=== PATIENT | female | born 1990 | race Asian ===

== ENCOUNTER 2018-07-24 21:46 | Emergency (ER) | payer SELFPAY ==
[~2018-07-24] VITALS: Ht 165.1 cm; Wt 113.4 kg
[2018-07-24 22:04] LABS: BILIRUBIN,URINE NEGATIVE (NEG); CLARITY,URINE CLOUDY; COLOR,URINE YELLOW; PROTEIN,URINE NEGATIVE (NEG-TRACE)
[2018-07-24 22:05] LABS: NITRITE,URINE NEGATIVE (NEG)
[2018-07-24 22:11] VITALS: BP 127/62
[2018-07-24 22:12] LABS: SQUAMOUS EPITHELIAL CELL,UR MANY /LPF
[2018-07-24 22:13] LABS: BACTERIA,URINE MODERATE /HPF (0-FEW); WBC,URINE 20-40 /HPF (0-4)
[2018-07-24 22:14] LABS: TRICHOMONAS,URINE PRESENT
[2018-07-24] MEDS ORDERED: CEPH-264 PO (23:13)
--- NOTE | 2018-07-24 23:14 | PHYS DOC ---
Past Medical History Past Medical History: No Pertinent History (NAVEED CELIS APRN) Past Surgical History: No Surgical History (NAVEED CELIS APRN) Alcohol Use: None Drug Use: None (NAVEED CELIS APRN) Adult General Chief Complaint Chief Complaint: ABDOMINAL PAIN HPI HPI Patient is a 28 year old [female] who presents with [lower abdominal pain starting at 1500 today. Patient reports she believes she is , reports s he had negative raising test at home and it had become positive. A she reports her lower abdominal pain comes and goes, denies any vaginal discharge, denies any vaginal bleeding. Denies any nausea. Denies any vomiting. Denies any diarrhea. Last bowel movement this morning. States she was only concerned about this abdominal pain, and if she was . Reports is her second , has a 9-year-old son. Last menstrual cycle May 14, 2018.] (NAVEED CELIS APRN) Review of Systems Review of Systems Constitutional: Denies fever or chills [] Eyes: Denies change in visual acuity, redness, or eye pain [] HENT: Denies nasal congestion or sore throat [] Respiratory: Denies cough or shortness of breath [] Cardiovascular: No additional information not addressed in HPI [] GI: Denies abdominal pain, nausea, vomiting, bloody stools or diarrhea [] : Reports mild dysuria denies hematuria [] Musculoskeletal: Denies back pain or joint pain [] Integument: Denies rash or skin lesions [] Neurologic: Denies headache, focal weakness or sensory changes [] Endocrine: Denies polyuria or polydipsia [] All other systems were reviewed and found to be within normal limits, except as documented in this note. (NAVEED CELIS APRN) Allergies Allergies Allergies Coded Allergies Type Severity Reaction Last Updated Verified No Known Drug Allergies 07/24/18 No (CAROL CASAS DO) Physical Exam Physical Exam Constitutional: Well developed, well nourished, no acute distress, non-toxic appearance. [] HENT: Normocephalic, atraumatic, bilateral external ears normal, oropharynx moist, no oral exudates, nose normal. [] Eyes: PERRLA, EOMI, conjunctiva normal, no discharge. [] Neck: Normal range of motion, no tenderness, supple, no stridor. [] Cardiovascular:Heart rate regular rhythm, no murmur [] Lungs & Thorax: Bilateral breath sounds clear to auscultation [] Abdomen: Bowel sounds normal, soft, no tenderness, no masses, no pulsatile masses. [] Skin: Warm, dry, no erythema, no rash. [] Back: No tenderness, no CVA tenderness. [] Extremities: No tenderness, no cyanosis, no clubbing, ROM intact, no edema. [] Neurologic: Alert and oriented X 3, normal motor function, normal sensory function, no focal deficits noted. [] Psychologic: Affect normal, judgement normal, mood normal. [] (NAVEED CELIS APRN) Current Patient Data Vital Signs Vital Signs Date Time Temp Pulse Resp B/P (MAP) Pulse Ox O2 Delivery O2 Flow Rate FiO2 07/24/18 22:11 97.7 82 20 127/62 (83) 100 Room Air 97.7 (CAROL CASAS DO) Lab Values Laboratory Tests Test 07/24/18 21:57 07/24/18 22:01 Urine Collection Type Unknown Urine Color Yellow Urine Clarity Cloudy Urine pH 6.0 Urine Specific [place] 1.020 Urine Protein Negative mg/dL (NEG-TRACE) Urine Glucose (UA) Negative mg/dL (NEG) Urine Ketones (Stick) Negative mg/dL (NEG) Urine Blood Trace (NEG) Urine Nitrite Negative (NEG) Urine Bilirubin Negative (NEG) Urine Urobilinogen Dipstick 2.0 mg/dL (0.2 mg/dL) Urine Leukocyte Esterase Large (NEG) Urine RBC 1-2 /HPF (0-2) Urine WBC 20-40 /HPF (0-4) Urine Squamous Epithelial Cells Many /LPF Urine Bacteria Moderate /HPF (0-FEW) Urine Mucus Mod /LPF Urine Trichomonas Present POC Urine HCG, Qualitative Hcg positive (Negative) Microbiology 07/24/18 Urine Culture - Final, Complete 07/24/18 Urine Culture Result 1 (GEOVANY) - Final, Complete (CAROL CASAS DO) EKG EKG [] (NAVEED CELIS APRN) Radiology/Procedures Radiology/Procedures [] (NAVEED CELIS APRN) Course & Med Decision Making Course & Med Decision Making Pertinent Labs and Imaging studies reviewed. (See chart for details) [] (NAVEED CELIS APRN) Dragon Disclaimer Dragon Disclaimer This electronic medical record was generated, in whole or in part, using a voice recognition dictation system. (NAVEED CELIS APRN) Departure Departure Impression: Primary Impression: UTI in Disposition: HOME, SELF-CARE Condition: GOOD Referrals: NO PCP (PCP) Patient Instructions: - Urinary Tract Infection, Urinary Tract Infection, [id number] Additional Instructions: As we discussed, make sure you take the antibiotic as prescribed. It is safe in You should start taking vitamins for your . Follow up with your Manager [facility] or your primary care provider for your pregna ncy. Scripts Cephalexin (KEFLEX) 500 Mg Capsule 1 CAP PO BID, #14 CAP Prov: NAVEED CELIS APRN 07/24/18 Attending Signature Attending Signature I have reviewed the PA/EMERGENCY ROOM PHYSICIAN's note and plan of care. I was available for consultation as needed during the patient's visit in the emergency department. I agree with the clinical impression, plan, and disposition. (CAROL CASAS DO) Problem Qualifiers Primary Impression: UTI in Trimester: first trimester Qualified Codes: O23.41 - Unspecified infection of urinary tract in , first trimester NAVEED CELIS APRN July 24, 2018 23:14 CAROL CASAS DO Jul 29, 2018 06:48
== END 2018-07-24 23:36 | disposition home or self-care (01) ==
LOC: ER 21:46
DX: O23.41 Unspecified infection of urinary tract in pregnancy, first trimester (principal); R10.30 Lower abdominal pain, unspecified; Z3A.00 Weeks of gestation of pregnancy not specified
CPT/HCPCS: 81001; 81025; 87086; 99284

== ENCOUNTER 2019-04-29 19:44 | Emergency (ER) | payer SELFPAY ==
[~2019-04-29] VITALS: Ht 170.2 cm; Wt 68.1 kg
[~2019-04-29 19:44] MED LIST: CEPH-264 PO; IBUP-1027 PO
[2019-04-29 20:20] VITALS: BP 113/71
--- NOTE | 2019-04-29 20:20 | PHYS DOC ---
Past Medical History Past Medical History: No Pertinent History (STELLA WALKER APRN) Past Surgical History: No Surgical History (STELLA WALKER APRN) Smoking Status: Never Smoker Alcohol Use: None Drug Use: None (STELLA WALKER APRN) Adult General Chief Complaint Chief Complaint: TEST [facility] HPI Patient is a 29 year old female 2 para 2 presenting to the ED today complaining of nausea and vomiting that began 2 days ago and possible . Patient reports her last menstrual cycle was the beginning of February 2019. Patient denies any abdominal pain. Denies any urgency, frequency or dysuria. (STELLA WALKER APRN) Review of Systems Review of Systems Constitutional: Denies fever or chills [] Eyes: Denies change in visual acuity, redness, or eye pain [] HENT: Denies nasal congestion or sore throat [] Respiratory: Denies cough or shortness of breath [] Cardiovascular: No additional information not addressed in HPI [] GI: Reports nausea and vomiting and possible . Denies abdominal pain,bloody stools or diarrhea [] : Denies dysuria or hematuria [] Musculoskeletal: Denies back pain or joint pain [] Integument: Denies rash or skin lesions [] Neurologic: Denies headache, focal weakness or sensory changes [] All other systems were reviewed and found to be within normal limits, except as documented in this note. (STELLA WALKER APRN) Allergies Allergies Allergies Coded Allergies Type Severity Reaction Last Updated Verified No Known Drug Allergies 07/24/18 No (YAO WISDOM APRN) Physical Exam Physical Exam Constitutional: Well developed, well nourished, no acute distress, non-toxic appearance. [] HENT: Normocephalic, atraumatic, bilateral external ears normal, oropharynx moist, no oral exudates, nose normal. [] Eyes: PERRLA, EOMI, conjunctiva normal, no discharge. [] Neck: Normal range of motion, no tenderness, supple, no stridor. [] Cardiovascular:Heart rate regular rhythm, no murmur [] Lungs & Thorax: Bilateral breath sounds clear to auscultation [] Abdomen: Bowel sounds normal, soft, no tenderness, no masses, no pulsatile masses. [] Skin: Warm, dry, no erythema, no rash. [] Back: No tenderness, no CVA tenderness. [] Extremities: No tenderness, no cyanosis, no clubbing, ROM intact, no edema. [] Neurologic: Alert and oriented X 3, normal motor function, normal sensory function, no focal deficits noted. [] Psychologic: Affect normal, judgement normal, mood normal. [] (STELLA WALKER APRN) Current Patient Data Vital Signs Vital Signs Date Time Temp Pulse Resp B/P (MAP) Pulse Ox O2 Delivery O2 Flow Rate FiO2 04/29/19 20:20 97.9 85 14 113/71 (85) 100 Room Air 97.9 (YAO WISDOM APRN) Lab Values Laboratory Tests Test 04/29/19 21:18 POC Urine HCG, Qualitative Hcg positive (Negative) (YAO WISDOM APRN) EKG EKG [] (STELLA WALKER APRN) Radiology/Procedures Radiology/Procedures [] (STELLA WALKER APRN) Radiology/Procedures Comparisons: None FINDINGS: Uterus measures 10.5 x 8.0 x 6.9 cm within the endometrium there is a gestational sac with pole. pole measures 1.5 cm in length. This corresponds to 7 weeks 6 days gestation. heart rate measured at 171 bpm. Right ovary measures 2.0 x 2.5 x 1.6 cm. Left ovary measures 3.1 x 3.2 x 2.3 cm. Vascular flow is identified within the ovaries bilaterally. IMPRESSION: 1. Single live intrauterine gestation measuring 7 weeks 6 days. Correlate with LMP 2. Dedicated survey is recommended at 18-20 weeks gestation. Electronically signed by: Vance Ortiz MD (04/29/2019 9:29 PM) [id number] DICTATED and SIGNED BY: VANCE ORTIZ MD DATE: 04/29/192128 (YAO WISDOM APRN) Course & Med Decision Making Course & Med Decision Making Pertinent Labs and Imaging studies reviewed. (See chart for details) This is a 29-year-old female patient presenting to the ED today with nausea and vomiting that began 2 days ago as well as possible . Last menstrual cycle the beginning of February 2019 Positive urine hCG. Pending OB ultrasound to confirm IUP and UA. Care tx to [facility] (STELLA WALKER APRN) Course & Med Decision Making Reviewed urinalysis showing UTI, reviewed ultrasound results showing intrauterine dated 7 weeks 6 days. Will provide Rx for antibiotics for UTI, vitamins. Patient to follow up with OBGYN (YAO WISDOM APRN) Tavo Disclaimer Tavo Disclaimer This electronic medical record was generated, in whole or in part, using a voice recognition dictation system. (STELLA WALKER APRN) Departure Departure Impression: Primary Impression: Additional Impression: Urinary tract infection affecting care of mother in first trimester, antepartum Disposition: HOME, SELF-CARE Condition: STABLE Referrals: NO PCP (PCP) CAROL VALERO MD follow up in 1-2 weeks Patient Instructions: ABCs of Additional Instructions: Your test is positive. Please take vitamins daily Please follow up with your OBGYN or the provided OBGYN in the next 1-2 weeks Scripts Nitrofurantoin Monohyd/M-Cryst (MACROBID 100 MG CAPSULE) 100 Mg Capsule 1 CAP PO BID for 5 Days, #10 CAP 0 Refills Prov: YAO WISDOM APRN 04/29/19 Pnv95/Ferrous Fumarate/FA ( Vitamin Tablet) 1 Each Tablet 1 TAB PO DAILY for 30 Days, #30 TAB 0 Refills Prov: YAO WISDOM APRN 04/29/19 Problem Qualifiers Primary Impression: Weeks of gestation: unspecified Qualified Codes: Z34.90 - Encounter for supervision of normal , unspecified, unspecified trimester STELLA WALKER APRN Apr 29, 2019 20:20 YAO WISDOM APRN Apr 29, 2019 21:45
[2019-04-29 21:24] LABS: BILIRUBIN,URINE NEGATIVE (NEG); CLARITY,URINE CLEAR; COLOR,URINE YELLOW; NITRITE,URINE NEGATIVE (NEG); PROTEIN,URINE NEGATIVE (NEG-TRACE)
--- NOTE | 2019-04-29 21:32 | RAD ---
Exam: Ultrasound OB less than 14 weeks Indication: Pain and Technique: Real-time grayscale and color Doppler images of the pelvis were obtained by the department surgical oncologist. Comparisons: None FINDINGS: Uterus measures 10.5 x 8.0 x 6.9 cm within the endometrium there is a gestational sac with pole. pole measures 1.5 cm in length. This corresponds to 7 weeks 6 days gestation. heart rate measured at 171 bpm. Right ovary measures 2.0 x 2.5 x 1.6 cm. Left ovary measures 3.1 x 3.2 x 2.3 cm. Vascular flow is identified within the ovaries bilaterally. IMPRESSION: 1. Single live intrauterine gestation measuring 7 weeks 6 days. Correlate with LMP 2. Dedicated survey is recommended at 18-20 weeks gestation. Electronically signed by: Vance Ponce MD (04/29/2019 9:29 PM) [id number]
[2019-04-29 21:37] LABS: BACTERIA,URINE MODERATE /HPF (0-FEW); RBC,URINE RARE /HPF (0-2); SQUAMOUS EPITHELIAL CELL,UR MOD /LPF
[2019-04-29] MEDS ORDERED: PNV91TAB6 PO (21:44)
[2019-04-29] MEDS ORDERED: NITR100C62 PO (21:44)
== END 2019-04-29 22:00 | disposition home or self-care (01) ==
LOC: ER 19:44 → EDBD 19:44 → ER 22:00
DX: O23.41 Unspecified infection of urinary tract in pregnancy, first trimester (principal); O21.9 Vomiting of pregnancy, unspecified; Z3A.01 Less than 8 weeks gestation of pregnancy
CPT/HCPCS: 76801; 81001; 81025; 87086; 99284

== ENCOUNTER 2019-05-04 19:23 | Emergency (ER) | payer SELFPAY ==
[~2019-05-04] VITALS: Ht 170.2 cm; Wt 68.0 kg
[~2019-05-04 19:23] MED LIST changes: +NITR100C62 PO; +PNV91TAB6 PO
[2019-05-04 20:00] VITALS: BP 125/68
[2019-05-04 20:52] LABS: BILIRUBIN,URINE NEGATIVE (NEG); CLARITY,URINE CLEAR; COLOR,URINE YELLOW; NITRITE,URINE NEGATIVE (NEG); PH,URINE 6.5 (<5.0-8.0); PROTEIN,URINE NEGATIVE (NEG-TRACE)
[2019-05-04 20:58] LABS: BACTERIA,URINE FEW /HPF (0-FEW); RBC,URINE OCC /HPF (0-2); SQUAMOUS EPITHELIAL CELL,UR MANY /LPF
--- NOTE | 2019-05-04 21:07 | PHYS DOC ---
Past Medical History Past Medical History: No Pertinent History Past Surgical History: No Surgical History Smoking Status: Never Smoker Alcohol Use: None Drug Use: None Adult General Chief Complaint Chief Complaint: ABDOMINAL PAIN IN HPI HPI Patient is a 29 year old female who presents to the emergency department with complaints of right flank pain and right-sided upper abdominal pain that began yesterday. Patient also reports increased urinary frequency, dysuria, and urgency. She denies any nausea, vomiting, diarrhea, abnormal vaginal discharge, vaginal bleeding, incontinence, fever, cough, or shortness of breath. She currently rates her pain a 9 out of 10 on the pain scale, she denies any alleviating factors, the pain is worse with urination. Patient states that her last menstrual cycle was on February 252019, this is her second , and she has 1 child at home. Review of Systems Review of Systems Complete ROS is negative unless otherwise noted in HPI. Allergies Allergies Allergies Coded Allergies Type Severity Reaction Last Updated Verified No Known Drug Allergies 07/24/18 No Physical Exam Physical Exam See Above Constitutional: Well developed, well nourished, no acute distress, non-toxic appearance, obese. [] HENT: Normocephalic, atraumatic, bilateral external ears normal, nose normal. [] Eyes: PERRLA, EOMI, conjunctiva normal, no discharge. [] Neck: Normal range of motion, no stridor. [] Cardiovascular:Heart rate regular rhythm, no murmur [] Lungs & Thorax: Bilateral breath sounds clear to auscultation, Respirations even and unlabored, no retractions, no respiratory distress [] Abdomen: Bowel sounds normal, soft, no rebound tenderness, no guarding, no masses, no pulsatile masses. [] Skin: Warm, dry, no erythema, no rash. [] Back: R CVA tenderness. [] Extremities: No cyanosis, ROM intact, no edema. [] Neurologic: Alert and oriented X 3, no focal deficits noted. [] Psychologic: Affect normal, judgement normal, mood normal. [] Current Patient Data Vital Signs Vital Signs Date Time Temp Pulse Resp B/P (MAP) Pulse Ox O2 Delivery O2 Flow Rate FiO2 05/04/19 20:00 98.2 81 16 125/68 (87) 98 Room Air 98.2 Lab Values Laboratory Tests Test 05/04/19 20:45 Urine Collection Type Unknown Urine Color Yellow Urine Clarity Clear Urine pH 6.5 (<5.0-8.0) Urine Specific [employer] 1.010 (1.000-1.030) Urine Protein Negative mg/dL (NEG-TRACE) Urine Glucose (UA) Negative mg/dL (NEG) Urine Ketones (Stick) Negative mg/dL (NEG) Urine Blood Negative (NEG) Urine Nitrite Negative (NEG) Urine Bilirubin Negative (NEG) Urine Urobilinogen Dipstick 1.0 mg/dL (0.2 mg/dL) Urine Leukocyte Esterase Moderate (NEG) Urine RBC Occ /HPF (0-2) Urine WBC 5-10 /HPF (0-4) Urine Squamous Epithelial Cells Many /LPF Urine Bacteria Few /HPF (0-FEW) Urine Mucus Slight /LPF POC Urine HCG, Qualitative Hcg positive (Negative) EKG EKG [] Radiology/Procedures Radiology/Procedures [] Course & Med Decision Making Course & Med Decision Making Pertinent Labs and Imaging studies reviewed. (See chart for details) Patient is a 29-year-old female who presented to the emergency room with complaints of right flank pain, dysuria, increased urinary frequency, and urgency. Will order urine test and UA. Urinalysis is concerning for a urinary tract infection. Prescription was written for Keflex, patient instructed to increase clear fluids and avoid bladder irritants. Recommend follow-up with [facility]. Return to the ER symptoms worsen. Patient was provided with a work excuse as requested. Patient verbalized an understanding of home care, medications, follow-up, and return to ED instructions and was in agreement with the plan of care. [] Dragon Disclaimer Dragon Disclaimer This electronic medical record was generated, in whole or in part, using a voice recognition dictation system. Departure Departure Impression: Primary Impression: Urinary tract infection affecting care of mother in first trimester, antepartum Disposition: HOME, SELF-CARE Condition: STABLE Referrals: NO PCP (PCP) Patient Instructions: - Urinary Tract Infection Additional Instructions: Fill prescription(s) and use as directed. Avoid bladder irritants such as caffeine, carbonation, and spicy foods. Increase clear fluids. Follow up with your primary care doctor if symptoms persist, return to the ER if symptoms worsen. Scripts Cephalexin (KEFLEX) 500 Mg Capsule 500 MG PO BID for 7 Days, #14 CAP 0 Refills Prov: PATSY MÉNDEZ APRN 05/04/19 PATSY MÉNDEZ APRN May 04, 2019 21:07
[2019-05-04] MEDS ORDERED: CEPH-264 PO (21:09)
== END 2019-05-04 21:20 | disposition home or self-care (01) ==
LOC: ER 19:23
DX: O23.41 Unspecified infection of urinary tract in pregnancy, first trimester (principal); Z3A.00 Weeks of gestation of pregnancy not specified
CPT/HCPCS: 81001; 81025; 87086; 99283

== ENCOUNTER 2019-08-25 16:38 | Observation (INO) | payer SELFPAY ==
[2019-08-25] MEDS ORDERED: IV RINGERS,LACTATED 1000ML 1,000 ML IV SCH (16:39)
[2019-08-25 17:24] LABS: BILIRUBIN,URINE NEGATIVE (NEG); CLARITY,URINE CLEAR; COLOR,URINE YELLOW; NITRITE,URINE NEGATIVE (NEG); PROTEIN,URINE NEGATIVE (NEG-TRACE)
[2019-08-25 17:32] LABS: BACTERIA,URINE MODERATE /HPF (0-FEW); SQUAMOUS EPITHELIAL CELL,UR FEW /LPF
[2019-08-25] MEDS ORDERED: hydrOXYzine 25 MG TABLET PO PRN (18:00)
== END 2019-08-25 18:40 | disposition home or self-care (01) ==
LOC: 3 SO LND 16:38
PROVIDERS: ADMIT Obstetrics & Gynecology; ATTEND Obstetrics & Gynecology
DX: O26.892 Other specified pregnancy related conditions, second trimester (principal); R10.9 Unspecified abdominal pain; Z3A.25 25 weeks gestation of pregnancy
CPT/HCPCS: 81001; 87086; G0378; G0379

== ENCOUNTER 2019-09-18 01:10 | Observation (INO) | payer SELFPAY ==
[2019-09-18] MEDS ORDERED: IV RINGERS,LACTATED 1000ML 1,000 ML IV SCH (01:15)
[2019-09-18 01:38] LABS: BILIRUBIN,URINE NEGATIVE (NEG); CLARITY,URINE CLEAR; COLOR,URINE YELLOW; NITRITE,URINE NEGATIVE (NEG); PH,URINE 7.5 (<5.0-8.0); PROTEIN,URINE NEGATIVE (NEG-TRACE)
[2019-09-18 01:43] LABS: RBC,URINE RARE /HPF (0-2); SQUAMOUS EPITHELIAL CELL,UR MOD /LPF
[2019-09-18 01:44] LABS: BACTERIA,URINE MODERATE /HPF (0-FEW)
[2019-09-18 01:45] LABS: BARBITURATES NEG (NEG); BENZODIAZEPINES NEG (NEG); CANNABINOIDS NEG (NEG); COCAINE NEG (NEG); METHADONE NEG (NEG); OPIATES NEG (NEG); PHENCYCLIDINE NEG (NEG)
[2019-09-18 01:47] LABS: AMPHETAMINE/METHAMPHETAMINE NEG (NEG)
== END 2019-09-18 02:25 | disposition home or self-care (01) ==
LOC: 3 SO LND 01:10
PROVIDERS: ADMIT Obstetrics & Gynecology; ATTEND Obstetrics & Gynecology
DX: O26.893 Other specified pregnancy related conditions, third trimester (principal); R10.9 Unspecified abdominal pain; Z3A.28 28 weeks gestation of pregnancy
CPT/HCPCS: 80307; 81001; 87086; G0378; G0379

== ENCOUNTER 2019-10-06 17:28 | Observation (INO) | payer SELFPAY ==
[2019-10-06] MEDS ORDERED: IV RINGERS,LACTATED 1000ML 1,000 ML IV SCH (17:49)
[2019-10-06 18:09] LABS: BILIRUBIN,URINE NEGATIVE (NEG); CLARITY,URINE CLEAR; COLOR,URINE YELLOW; NITRITE,URINE NEGATIVE (NEG); PH,URINE 6.5 (<5.0-8.0); PROTEIN,URINE NEGATIVE (NEG-TRACE); UROBILINOGEN,URINE 0.2 mg/dL (0.2 mg/dL)
[2019-10-06 18:18] LABS: RBC,URINE 0 /HPF (0-2)
[2019-10-06 18:19] LABS: BACTERIA,URINE FEW /HPF (0-FEW); SQUAMOUS EPITHELIAL CELL,UR MOD /LPF; WBC,URINE 20-40 /HPF (0-4)
== END 2019-10-06 19:15 | disposition home or self-care (01) ==
LOC: 3 SO LND 17:28
PROVIDERS: ADMIT Obstetrics & Gynecology; ATTEND Obstetrics & Gynecology
DX: O26.853 Spotting complicating pregnancy, third trimester (principal); M79.652 Pain in left thigh; M79.651 Pain in right thigh; Z3A.30 30 weeks gestation of pregnancy
CPT/HCPCS: 81001; 87086; G0378; G0379

== ENCOUNTER 2019-11-30 00:10 | Inpatient (IN) | payer SELFPAY ==
[~2019-11-30] VITALS: Ht 165.1 cm; Wt 136.1 kg
[2019-11-30] MEDS ORDERED: ACETAMINOPHEN 325 MG TABLET. PO PRN ×2 (00:30→01:45)
[2019-11-30] MEDS ORDERED: 0.9 % SODIUM CHLORIDE 10 ML DISP.SYRIN. IV PRN ×2 (00:30→01:45)
[2019-11-30] MEDS ORDERED: IBUPROFEN 400 MG TABLET. PO PRN (00:30)
[2019-11-30] MEDS ORDERED: fentaNYL PF VIAL 100 MCG/2 ML VIAL IVP PRN (00:30)
[2019-11-30] MEDS ORDERED: OXYTOCIN 30 UNIT/500 ML PREMIX 500 ML IV PRN ×2 (00:30→01:45)
[2019-11-30] MEDS ORDERED: CITRIC ACID/SODIUM CITRATE 30 ML SOLUTION. PO PRN (00:30)
[2019-11-30] MEDS ORDERED: PENICILLIN G K 5,000,000 UNIT in IV DEXTROSE 5% 100ML 100 ML IV ONE (00:30)
[2019-11-30] MEDS ORDERED: LIDOCAINE 1% PF 30 ML VIAL. INJ PRN (00:30)
[2019-11-30] MEDS ORDERED: TERBUTALINE 1 MG/ML VIAL. SQ PRN (00:30)
[2019-11-30 00:44] LABS: BASO % 1 % (0-3); EOS # 0.1 x10^3/uL (0.0-0.7); EOS % 2 % (0-3); HEMATOCRIT 36.2 % (36.0-47.0); HEMOGLOBIN 12.1 g/dL (12.0-15.5); LYMPH # 1.9 x10^3/uL (1.0-4.8); LYMPH % 22 % (24-48); MEAN CORPUSCULAR HEMOGLOBIN 27 pg (25-35); MEAN CORPUSCULAR HGB CONC 33 g/dL (31-37); MEAN CORPUSCULAR VOLUME 81 fL (79-100); MONO # 0.8 x10^3/uL (0.0-1.1); MONO % 9 % (0-9); NEUT # 5.7 x10^3/uL (1.8-7.7); NEUT % 67 % (31-73); PLATELET COUNT 209 x10^3/uL (140-400); RED BLOOD COUNT 4.48 x10^6/uL (3.50-5.40); RED CELL DISTRIBUTION WIDTH 14.2 % (11.5-14.5); WHITE BLOOD COUNT 8.5 x10^3/uL (4.0-11.0)
[2019-11-30] MEDS: OXYTOCIN 30 UNIT/500 ML PREMIX 500 ML IV PRN ×2 (01:14→01:37)
[2019-11-30] MEDS: IV RINGERS,LACTATED 1000ML 1,000 ML IV SCH ×2 (01:15→06:29)
--- NOTE | 2019-11-30 01:33 | PDOC1 ---
OB - History Hx of Present Care: Good Care Ultrasounds: Normal mid trimester US Obstetrical Complications: None Medical Complications: None Past Family/Social History * Past Medical, Surgical, Family and Obstetric Histories reviewed from chart. Blood Type: Unknown Rubella: Unknown RPR/VDRL: Unknown GBS Status: Unknown HBsAG: Unknown OB - Chief Complaint & HPI Date of Admission: Date of Admission: Nov 30, 2019 at 00:10 Chief Complaint/History : 3 Para: 1 EGA: 38 Reason for admission: active labor, rupture of membranes Admission Nurse Assessment Rev: Yes OB - Admission Exam Physical Exam Vitals: VS - Last 72 Hours, by Label Date Time Temp Pulse Resp B/P (MAP) Pulse Ox O2 Delivery O2 Flow Rate FiO2 11/30/19 01:17 15 Room Air HEENT: Normal Heart: Regular Rate Lungs: Clear Abdomen: Gravid, Non tender, Soft Extremities: Edema Reflexes: Normal Cervical Dilatation: 9cm Effacement: 100% Station: +1 Membranes: Ruptured Amniotic Fluid: Clear Heart Rate: Normal Accelerations: Accelerations Present Contractions on Admission: < 5 Minutes Apart Intensity: Moderate Text A: 38 wks IUP SROM Active labor GBS unknown P: Admit active labor. Start Pen G prophylaxis. BETTY PEDROZA Jr, MD Nov 30, 2019 01:33
--- NOTE | 2019-11-30 01:34 | PDOC ---
VAGINAL DELIVERY DATE DATE: 11/30/19 TIME: 01:33 : 3 Para: 2 EGA: 38 VAGINAL DELIVERY: VTX VACCUM ASSISTED: No PLACENTA: Spontaneous 8/9 SEX: Female WEIGHT Weight [ pending ] Nuchal Cord: No Amniotic Fluid: Clear PAIN: Natural EPISIOTOMY: No EXTENSION: Yes (Left periurethral, Right vaginal sidewall and Right labial) REPAIRED WITH 3-0 chromic EBL 500 ml COMPLICATIONS none CONDITION pt. stable Signs of Intrauterine Infectio: None Shoulder Dystocia: No BETTY PEDROZA Jr, MD Nov 30, 2019 01:34
[2019-11-30] MEDS ORDERED: TDaP (Adacel) per PROTOCOL. MC PRN (01:45)
[2019-11-30] MEDS ORDERED: SIMETHICONE 80 MG TAB.CHEW PO PRN (01:45)
[2019-11-30] MEDS ORDERED: HYDROCORTISONE 1% TOPICAL OINTMENT 30GM TUBE. TP PRN (01:45)
[2019-11-30] MEDS ORDERED: MMR per PROTOCOL. MC PRN (01:45)
[2019-11-30] MEDS ORDERED: oxyCODONE/APAP 5/325 1 TAB TABLET PO PRN (01:45)
[2019-11-30] MEDS ORDERED: MAGNESIUM HYDROXIDE 2,400 MG/30 ML ORAL.SUSP. PO PRN (01:45)
[2019-11-30] MEDS ORDERED: ZOLPIDEM 5 MG TABLET. PO PRN (01:45)
[2019-11-30] MEDS ORDERED: BENZOCAINE 20% TOPICAL AEROSOL SPRAY 57GM CAN. TP PRN (01:45)
[2019-11-30] MEDS ORDERED: diphenhydrAMINE HCL 25 MG CAPSULE PO PRN (01:45)
[2019-11-30] MEDS ORDERED: MAG HYDROX/ALUMINUM HYD/SIMETH 30 ML ORAL.SUSP PO PRN (01:45)
[2019-11-30] MEDS ORDERED: PHENYLEPH/MINERAL OIL/PETROLAT RECTAL OINTMENT TUBE. RC PRN (01:45)
[2019-11-30 02:38] VITALS: BP 127/66
[2019-11-30 04:19] VITALS: BP 126/54
[2019-11-30] MEDS ORDERED: PENICILLIN G K 2,500,000 UNIT in IV DEXTROSE 5% 50 ML IV SCH (04:30)
[2019-11-30] MEDS: DOCUSATE SODIUM 100 MG CAPSULE. PO PRN (08:41)
[2019-11-30] MEDS: MULTIVITAMIN with MINERAL TABLET. PO SCH (08:42)
[2019-11-30 09:00] VITALS: BP 111/65
[2019-11-30 15:01] VITALS: BP 115/82
[2019-11-30 18:16] VITALS: BP 109/67
[2019-11-30] MEDS: IBUPROFEN 400 MG TABLET. PO PRN (20:54)
[2019-11-30 22:42] VITALS: BP 104/63
[2019-12-01 02:44] VITALS: BP 94/53
[2019-12-01] MEDS: IBUPROFEN 400 MG TABLET. PO PRN ×2 (05:53→22:00)
[2019-12-01 06:30] VITALS: BP 96/54
[2019-12-01] MEDS: FERROUS SULFATE 325 MG TABLET. PO SCH ×3 (08:00→09:01)
[2019-12-01 08:31] LABS: BASO % 0 % (0-3); EOS # 0.2 x10^3/uL (0.0-0.7); EOS % 2 % (0-3); HEMATOCRIT 28.2 % (36.0-47.0); HEMOGLOBIN 9.4 g/dL (12.0-15.5); LYMPH # 2.8 x10^3/uL (1.0-4.8); LYMPH % 26 % (24-48); MEAN CORPUSCULAR HEMOGLOBIN 27 pg (25-35); MEAN CORPUSCULAR HGB CONC 34 g/dL (31-37); MEAN CORPUSCULAR VOLUME 81 fL (79-100); MONO # 0.8 x10^3/uL (0.0-1.1); MONO % 8 % (0-9); NEUT # 6.8 x10^3/uL (1.8-7.7); NEUT % 64 % (31-73); PLATELET COUNT 177 x10^3/uL (140-400); RED CELL DISTRIBUTION WIDTH 14.2 % (11.5-14.5); WHITE BLOOD COUNT 10.7 x10^3/uL (4.0-11.0)
[2019-12-01] MEDS: DOCUSATE SODIUM 100 MG CAPSULE. PO PRN (09:01)
[2019-12-01] MEDS: MULTIVITAMIN with MINERAL TABLET. PO SCH (09:01)
[2019-12-01 11:17] VITALS: BP 109/76
--- NOTE | 2019-12-01 11:29 | NUR ---
SS received referral regarding "mother scored 18 on [place] depression scale." Referral to PAT team made for further assessment and recommendations and resources. Mother's RN notified. Amadeo from PAT team coming to meet with pt. SS will continue to follow as needed.
--- NOTE | 2019-12-01 16:56 | PDOC ---
OB Progress Note Date of Service 12/01/19 Time of Evaluation 1655 Notes Pt. feeling well. Pain controlled. No complaints. Lab Laboratory Tests Test 11/30/19 00:30 11/30/19 00:35 12/01/19 08:10 White Blood Count 8.5 x10^3/uL (4.0-11.0) 10.7 x10^3/uL (4.0-11.0) Red Blood Count 4.48 x10^6/uL (3.50-5.40) 3.50 x10^6/uL (3.50-5.40) Hemoglobin 12.1 g/dL (12.0-15.5) 9.4 g/dL (12.0-15.5) Hematocrit 36.2 % (36.0-47.0) 28.2 % (36.0-47.0) Mean Corpuscular Volume 81 fL (79-100) 81 fL (79-100) Mean Corpuscular Hemoglobin 27 pg (25-35) 27 pg (25-35) Mean Corpuscular Hemoglobin Concent 33 g/dL (31-37) 34 g/dL (31-37) Red Cell Distribution Width 14.2 % (11.5-14.5) 14.2 % (11.5-14.5) Platelet Count 209 x10^3/uL (140-400) 177 x10^3/uL (140-400) Neutrophils (%) (Auto) 67 % (31-73) 64 % (31-73) Lymphocytes (%) (Auto) 22 % (24-48) 26 % (24-48) Monocytes (%) (Auto) 9 % (0-9) 8 % (0-9) Eosinophils (%) (Auto) 2 % (0-3) 2 % (0-3) Basophils (%) (Auto) 1 % (0-3) 0 % (0-3) Neutrophils # (Auto) 5.7 x10^3/uL (1.8-7.7) 6.8 x10^3/uL (1.8-7.7) Lymphocytes # (Auto) 1.9 x10^3/uL (1.0-4.8) 2.8 x10^3/uL (1.0-4.8) Monocytes # (Auto) 0.8 x10^3/uL (0.0-1.1) 0.8 x10^3/uL (0.0-1.1) Eosinophils # (Auto) 0.1 x10^3/uL (0.0-0.7) 0.2 x10^3/uL (0.0-0.7) Basophils # (Auto) 0.0 x10^3/uL (0.0-0.2) 0.0 x10^3/uL (0.0-0.2) Treponema pallidum Antibody Nonreactive (Nonreactive) Coronavirus (PCR) Not detected (Not Detected) SARS-CoV-2 Antigen (Rapid) Negative (NEGATIVE) Laboratory Tests Test 12/01/19 08:10 White Blood Count 10.7 x10^3/uL (4.0-11.0) Red Blood Count 3.50 x10^6/uL (3.50-5.40) Hemoglobin 9.4 g/dL (12.0-15.5) Hematocrit 28.2 % (36.0-47.0) Mean Corpuscular Volume 81 fL (79-100) Mean Corpuscular Hemoglobin 27 pg (25-35) Mean Corpuscular Hemoglobin Concent 34 g/dL (31-37) Red Cell Distribution Width 14.2 % (11.5-14.5) Platelet Count 177 x10^3/uL (140-400) Neutrophils (%) (Auto) 64 % (31-73) Lymphocytes (%) (Auto) 26 % (24-48) Monocytes (%) (Auto) 8 % (0-9) Eosinophils (%) (Auto) 2 % (0-3) Basophils (%) (Auto) 0 % (0-3) Neutrophils # (Auto) 6.8 x10^3/uL (1.8-7.7) Lymphocytes # (Auto) 2.8 x10^3/uL (1.0-4.8) Monocytes # (Auto) 0.8 x10^3/uL (0.0-1.1) Eosinophils # (Auto) 0.2 x10^3/uL (0.0-0.7) Basophils # (Auto) 0.0 x10^3/uL (0.0-0.2) Medications Current Medications Sodium Chloride (Normal Saline Flush) 3 ml QSHIFT PRN IV AFTER MEDS AND BLOOD DRAWS; Start 11/30/19 at 00:30 Ringer's Solution 1,000 ml @ 125 mls/hr Q8H IV Last administered on 11/30/19at 01:15; Start 11/30/19 at 00:30 Fentanyl Citrate (Fentanyl 2ml Vial) 100 mcg PRN Q30MIN PRN IVP Severe pain Last administered on 11/30/19at 01:17; Start 11/30/19 at 00:30 Acetaminophen (Tylenol) 1,000 mg PRN Q6HRS PRN PO MILD PAIN / TEMP > 100.3'F; Start 11/30/19 at 00:30; Stop 11/30/19 at 10:16; Status DC Citric Acid/ Sodium Citrate (Bicitra) 30 ml 1X PRN PRN PO DYSPEPSIA; Start 11/30/19 at 00:30; Stop 12/01/19 at 00:29; Status DC Terbutaline Sulfate (Brethine) 0.25 mg 1X PRN PRN SQ SEE COMMENTS; Start 11/30/19 at 00:30; Stop 12/01/19 at 00:29; Status DC Lidocaine HCl (Xylocaine 1% Pf 30ml Vial) 30 ml 1X PRN PRN INJ SEE COMMENTS Last administered on 11/30/19at 01:16; Start 11/30/19 at 00:30; Stop 12/02/19 at 00:29 Oxytocin/Sodium Chloride 500 ml @ 0 mls/hr CONT PRN IV SEE I/O RECORD; Start 11/30/19 at 00:30 Oxytocin/Sodium Chloride 500 ml @ 0 mls/hr CONT PRN PRN IV Post delivery bleeding Last administered on 11/30/19at 01:37; Start 11/30/19 at 00:30 Ibuprofen (Motrin) 800 mg PRN Q6HRS PRN PO PAIN Last administered on 11/30/19at 03:57; Start 11/30/19 at 00:30; Stop 11/30/19 at 10:17; Status DC Penicillin G Potassium 1285537 unit/Dextrose 100 ml @ 100 mls/hr 1X ONCE IV ; Start 11/30/19 at 00:30; Stop 11/30/19 at 01:29; Status DC Penicillin G Potassium [id number] unit/Dextrose 50 ml @ 100 mls/hr Q4H IV ; Start 11/30/19 at 04:30; Stop 11/30/19 at 01:40; Status DC Sodium Chloride (Normal Saline Flush) 10 ml QSHIFT PRN IV AFTER MEDS AND BLOOD DRAWS; Start 11/30/19 at 01:45 Oxytocin/Sodium Chloride 500 ml @ 62.5 mls/hr CONT PRN IV SEE I/O RECORD; Start 11/30/19 at 01:45; Stop 11/30/19 at 09:44; Status DC Acetaminophen (Tylenol) 650 mg PRN Q6HRS PRN PO MILD PAIN / TEMP > 100.3'F Last administered on 12/01/19at 09:00; Start 11/30/19 at 01:45 Ibuprofen (Motrin) 800 mg PRN Q8HRS PRN PO INFLAMMATION/PAIN PREVENTION Last administered on 12/01/19at 05:53; Start 11/30/19 at 01:45 Docusate Sodium (Colace) 100 mg PRN BID PRN PO HARD STOOL Last administered on 12/01/19at 09:01; Start 11/30/19 at 01:45 Magnesium Hydroxide (Milk Of Magnesia) 2,400 mg PRN DAILY PRN PO CONSTIPATION Last administered on 12/01/19at 09:01; Start 11/30/19 at 01:45 Al Hydroxide/Mg Hydroxide (Mylanta Plus Xs) 30 ml PRN Q4HRS PRN PO HEARTBURN / GAS; Start 11/30/19 at 01:45 Simethicone (Gas-X) 80 mg PRN AFTMEALHC PRN PO GAS / BLOATING; Start 11/30/19 at 01:45 Diphenhydramine HCl (Benadryl) 25 mg PRN Q6HRS PRN PO ITCHING; Start 11/30/19 at 01:45 Benzocaine (Americaine) 1 spray PRN QID PRN TP TOPICAL PAIN; Start 11/30/19 at 01:45 Phenyleph/Shark Oil/Min Oil/Petrol (Preparation H) 1 sasha PRN QID PRN RC RECTAL PAIN; Start 11/30/19 at 01:45 Hydrocortisone (Cortaid) 1 sasha PRN QID PRN TP PERINEAL PAIN; Start 10/5/20 at 01:45 Ferrous Sulfate (Feosol) 325 mg BIDWMEALS PO Last administered on 12/01/19at 09:01; Start 12/01/19 at 08:00 Zolpidem Tartrate (Ambien) 5 mg PRN QHS PRN PO INSOMNIA, MAY REPEAT X1; Start 11/30/19 at 01:45 Info (Do NOT chart on this placeholder) 1 ea 1X PRN PRN MC SEE COMMENTS; Start 11/30/19 at 01:45 Info (Do NOT chart on this placeholder) 1 ea 1X PRN PRN MC SEE COMMENTS; Start 11/30/19 at 01:45 Oxycodone/ Acetaminophen (Percocet 5/325) 2 tab PRN Q4HRS PRN PO MODERATE PAIN, SEVERE PAIN; Start 11/30/19 at 01:45 Multivitamins (Thera M Plus) 1 tab DAILY PO Last administered on 12/01/19at 09:01; Start 11/30/19 at 09:00 Active Scripts Active Keflex (Cephalexin) 500 Mg Capsule 500 Mg PO BID 7 Days Macrobid 100 Mg Capsule (Nitrofurantoin Monohyd/M-Cryst) 100 Mg Capsule 1 Cap PO BID 5 Days Vitamin Tablet (Pnv95/Ferrous Fumarate/FA) 1 Each Tablet 1 Tab PO DAILY 30 Days Ibuprofen 400 Mg Tablet 800 Mg PO PRN Q8HRS PRN Keflex (Cephalexin) 500 Mg Capsule 1 Cap PO BID Exam Abd: soft, non tender, fundus firm Assessment PPD#1 s/p Plan of Care: Continue current Tx, Mgmt BETTY PEDROZA Jr, MD Dec 01, 2019 16:56
[2019-12-01 18:22] VITALS: BP 115/78
[2019-12-01 22:43] VITALS: BP 106/69
[2019-12-02 05:26] VITALS: BP 90/57
--- NOTE | 2019-12-02 06:23 | PDOC3 ---
OB DISCHARGE SUMMARY DATE OF ADMISSION: 11/30/19 DATE OF DISCHARGE: 12/02/19 REASON FOR ADMISSION: Onset of labor INTRAPARTUM PROCEDURES: Spontanous Vag Deliv DISCHARGE DIAGNOSIS: Term Delivered DISCHARGE INFORMATION: Activity (ad william), Diet (regular), Instructions (pelvic rest x 6 wks) HOSPITAL COURSE Term gestation delivered without complications. BETTY PEDROZA Jr, MD Dec 02, 2019 06:23
[2019-12-02] MEDS ORDERED: IBUP-1027 PO (06:34)
--- NOTE | 2019-12-02 06:35 | DISCH ---
DISCHARGE INSTRUCTIONS Condition on Discharge Condition on Discharge: Stable Activity After Discharge Activity Instructions for Disc: Activity as tolerated Lifting Instructions after Dis: No heavy lifting, No pulling or pushing, Do not lift >10 pounds Driving Instructions after Dis: Do not drive today Weight Bearing Status after Di: As tolerated Diet after Discharge Diet after Discharge: Regular Diet Texture: Regular Contacting the DRDion after DC Call your doctor for: Concerns you may have Follow-Up Follow up with: Kike in 6 wks Treatment/Equipment after DC Adaptive Equipment Issued: None BETTY PEDROZA Jr, MD Dec 02, 2019 06:35
[2019-12-02] MEDS: IBUPROFEN 400 MG TABLET. PO PRN (08:18)
[2019-12-02] MEDS: FERROUS SULFATE 325 MG TABLET. PO SCH (08:18)
[2019-12-02] MEDS: MULTIVITAMIN with MINERAL TABLET. PO SCH (08:18)
[2019-12-02 08:36] VITALS: BP 120/71
--- NOTE | 2019-12-02 12:03 | NUR ---
Discharge Discharge instructions given to patient at this time. No questions at this time. Patient states she does not have money to get a car seat, multiple options suggested to patient but she states she can't get one. Message let for, Social Service, Ailyn left at this time. Will monitor.
[2019-12-02 16:48] VITALS: BP 107/76
[2019-12-02 18:35] VITALS: BP 107/76
== END 2019-12-02 18:50 | disposition home or self-care (01) | DRG 807 ==
LOC: OBSVTOIN 00:10 → 3 SO LND 00:10 → 3 NORTH 04:19
PROVIDERS: ADMIT Obstetrics & Gynecology; ATTEND Obstetrics & Gynecology
PROC: 10E0XZZ Delivery of Products of Conception, External Approach (ICD-10-PCS; principal; 2019-11-30)
PROC: 0U7C7ZZ Dilation of Cervix, Via Natural or Artificial Opening (ICD-10-PCS; 2019-11-30)
DX: O80 Encounter for full-term uncomplicated delivery (principal); Z37.0 Single live birth; Z3A.38 38 weeks gestation of pregnancy; Z20.828 Contact with and (suspected) exposure to other viral communicable diseases
CPT/HCPCS: 36415; 85025; 86592; 86850; 86900; 86901; 87426; J2590; J3010; J3490; J7120; G0378; U0003-CS

== ENCOUNTER 2020-03-23 15:20 | Observation (INO) | payer SELFPAY ==
[~2020-03-23] VITALS: Ht 177.8 cm; Wt 113.6 kg
[2020-03-23 16:00] LABS: BILIRUBIN,URINE NEGATIVE (NEG); CLARITY,URINE CLEAR; COLOR,URINE YELLOW; NITRITE,URINE NEGATIVE (NEG); PH,URINE 6.5 (<5.0-8.0); PROTEIN,URINE NEGATIVE (NEG-TRACE)
[2020-03-23] MEDS ORDERED: IV NORMAL SALINE 1000ML BAG 1,000 ML IV ONE (16:00)
[2020-03-23 16:07] LABS: BACTERIA,URINE FEW /HPF (0-FEW)
[2020-03-23 16:08] LABS: RBC,URINE RARE /HPF (0-2); WBC,URINE OCC /HPF (0-4)
--- NOTE | 2020-03-23 16:12 | PHYS DOC ---
Past Medical History Past Medical History: No Pertinent History Past Surgical History: No Surgical History Smoking Status: Never Smoker Alcohol Use: None Drug Use: None General Adult EDM: Chief Complaint: HEADACHE HPI: HPI: This is a pleasant 30-year-old female presenting to the emergency department today with a headache. Her headache is in the front and she also has pain along the musculature of the neck. She reports having fevers and chills. This all started yesterday. Here she is not having a fever her temperature was 97.3 on arrival. She describes the headache as 10 out of 10. She reports that is worse than labor. She has not taken any medication for the pain. She is not taken Tylenol she has not taken ibuprofen. She denies any facial drooping slurred speech or any new rashes. She denies confusion. She reports she was lifting heavy boxes at [email or web address] recently. She denies any major medical conditions. She denies any numbness or weakness of the arms or legs. She denies any neck stiffness or nuchal rigidity. The headache was not sudden in onset. It took more than 2 hours to come to maximal intensity. Review of systems negative for chest pain shortness of breath abdominal pain vomiting diaphoresis fevers chills nuchal rigidity. All other review of systems negative. ED course: 30-year-old female presenting with a severe headache. On arrival her vital signs are unremarkable. On examination she has a supple neck with normal range of motion. Negative Kernig sign. Negative sign. Normal neurologic exam. She is well-appearing and otherwise has a normal physical exam. She does not appear to be in severe pain. Given her pain level, head CT ordered along with blood work. IV established. Covid test and influenza testing sent. Influenza negative. CT head shows calcification cannot exclude h emorrhage. I spoke with Dr. Luna our neurosurgeon and Dr. Patterson our neurologist. Recommendation is for CT angiogram tonight. We will also draw blood work. We will need to admit the patient for repeat head CT or MRI tomorrow morning. CT angiogram not back prior to the end of my shift at 6 PM. Plan is to follow-up on imaging and blood work. We will then admit the patient to the hospital for repeat imaging tomorrow morning. Patient had a normal neurologic exam at 6 PM prior to my finishing my shift. She was in stable condition her headache had improved. my last evaluation of the patient was about 540p. Heart Score: Risk Factors: Risk Factors: DM, Current or recent (<one month) smoker, HTN, HLP, family history of CAD, obesity. Risk Scores: Score 0 - 3: 2.5% MACE over next 6 weeks - Discharge Home Score 4 - 6: 20.3% MACE over next 6 weeks - Admit for Clinical Observation Score 7 - 10: 72.7% MACE over next 6 weeks - Early Invasive Strategies Current Medications: Current Medications Medications (Trade) Dose Ordered Sig/Ariadna Start Time Stop Time Status Last Admin Dose Admin Sodium Chloride 1,000 ml @ 1,000 mls/hr 1X ONCE 03/23/20 16:00 03/23/20 16:59 Allergies: Allergies: Allergies Coded Allergies Type Severity Reaction Last Updated Verified No Known Drug Allergies 07/24/18 No Physical Exam: PE: Constitutional: Well developed, well nourished, no acute distress, non-toxic appearance. [] HENT: Normocephalic, atraumatic, bilateral external ears normal, oropharynx moist, no oral exudates, nose normal. [] Eyes: PERRLA, EOMI, conjunctiva normal, no discharge. [] Neck: Normal range of motion, no tenderness, supple, no stridor. No nuchal rigidity. Negative Babinski sign. Negative Kernig sign. Cardiovascular:Heart rate regular rhythm, no murmur [] Lungs & Thorax: Bilateral breath sounds clear to auscultation [] Abdomen: Bowel sounds normal, soft, no tenderness, no masses, no pulsatile mas ses. [] Skin: Warm, dry, no erythema, no rash. [] Back: No tenderness, no CVA tenderness. [] Extremities: No tenderness, no cyanosis, no clubbing, ROM intact, no edema. No petechiae. No rash. Neurologic: Mental status: Awake oriented and alert x3 Cranial nerves: Extraocular movements intact, eyebrows padmini bilaterally, smile symmetric, uvula elevation nl, shoulder shrug intact bilaterally, tongue protrusion normal Clear speech. Normal [id number]. Sensation: equal and normal in all extremities Strength: 5/5 in upper and lower extremities bilaterally Psychologic: Affect normal, judgement normal, mood normal. [] Current Patient Data: Labs: Laboratory Tests Test 03/23/20 15:44 POC Urine HCG, Qualitative Hcg negative (Negative) Vital Signs: Vital Signs Date Time Temp Pulse Resp B/P (MAP) Pulse Ox O2 Delivery O2 Flow Rate FiO2 03/23/20 15:49 97.3 84 18 119/74 (89) 100 Room Air 97.3 EKG: EKG: [] Radiology/Procedures: Radiology/Procedures: [] Course & Med Decision Making: Course & Med Decision Making Pertinent Labs and Imaging studies reviewed. (See chart for details) [] Dragon Disclaimer: Dragon Disclaimer: This electronic medical record was generated, in whole or in part, using a voice recognition dictation system. Departure Departure Impression: Primary Impression: Headache Additional Impression: Severe headache Referrals: NO PCP (PCP) PAPO ZARAGOZA MD Mar 23, 2020 16:12
--- NOTE | 2020-03-23 16:32 | RAD ---
CT head without contrast: Reason for examination: Headache. Axial images were obtained through the brain. No contrast was administered. Exposure: One or more of the following individualized dose reduction techniques were utilized for thi s examination: 1. Automated exposure control 2. Adjustment of the mA and/or kV according to patient size 3. Use of iterative reconstruction technique. Ventricular systems are symmetric and not abnormally dilated. No midline shift is seen. There is a sm all hyperdensity within the right basal ganglia near the genu of the internal capsule measuring 4 mm in size. This has a Hounsfield unit value of 75. This likely represents basal ganglia calcification h owever a small focus of hemorrhage cannot be excluded. This may be further characterized by MRI. No o ther focal lesions are seen in the brain. No abnormalities are seen at the orbits. The paranasal sinu ses and mastoid air cells are clear. No acute skull abnormality is seen. IMPRESSION: 4 mm hyperdensity in the right basal ganglia near the genu of the internal capsule. This may represen t basal ganglia calcification however small hemorrhage cannot be excluded based on Hounsfield unit me asurement. Further evaluation with MRI may be helpful. Electronically signed by: Kristi Armas MD (03/23/2020 4:29 PM) [id number]
[2020-03-23 16:42] LABS: INFLUENZA A PATIENT NEGATIVE (NEGATIVE); INFLUENZA B PATIENT NEGATIVE (NEGATIVE)
[2020-03-23] MEDS ORDERED: IOHEXOL 350 MG/ML 100 ML VIAL. IV ONE (17:30)
[2020-03-23] MEDS ORDERED: CONTRAST GIVEN. MC PRN (17:30)
[2020-03-23 18:12] LABS: BASO % 0 % (0-3); EOS # 1.7 x10^3/uL (0.0-0.7); EOS % 21 % (0-3); HEMATOCRIT 33.8 % (36.0-47.0); HEMOGLOBIN 10.7 g/dL (12.0-15.5); LYMPH # 2.7 x10^3/uL (1.0-4.8); LYMPH % 34 % (24-48); MEAN CORPUSCULAR HEMOGLOBIN 25 pg (25-35); MEAN CORPUSCULAR HGB CONC 32 g/dL (31-37); MEAN CORPUSCULAR VOLUME 79 fL (79-100); MONO # 0.7 x10^3/uL (0.0-1.1); MONO % 8 % (0-9); NEUT # 2.9 x10^3/uL (1.8-7.7); NEUT % 36 % (31-73); PLATELET COUNT 189 x10^3/uL (140-400); RED BLOOD COUNT 4.27 x10^6/uL (3.50-5.40); RED CELL DISTRIBUTION WIDTH 15.8 % (11.5-14.5); WHITE BLOOD COUNT 8.1 x10^3/uL (4.0-11.0)
--- NOTE | 2020-03-23 18:16 | RAD ---
CLINICAL HISTORY: Reason: HEADACHE / Spl. Instructions: [id number] 75ML / History: COMPARISON: None available. TECHNIQUE: CT angiogram of the head and neck was performed following the administration of IV contras t. Multiplanar reconstructed images were obtained including 3D reconstructed images performed on an [facility] work station. Stenosis if present in the carotid arteries were measured using NASCET crite oscar. PQRS compliance statement - One or more of the following individualized dose reduction techniques wer e utilized for this study: 1. Automated exposure control 2. Adjustment of the mA and/or kV according to patient size 3. Use of iterative reconstruction technique FINDINGS: CTA of the intracranial circulation reveals normal appearing distal internal carotid arteries includi ng the distal cervical, petrous, cavernous and supraclinoid portions. The anterior cerebral arteries are well visualized and without evidence of stenosis or occlusion. The middle cerebral arteries are well visualized and without evidence of stenosis or occlusion. The posterior cerebral arteries are well visualized and without evidence of stenosis or occlusion. The vertebral basilar system is normal with no evidence of stenosis or occlusion. In the neck, the origins of the great vessels are unremarkable. The common carotid arteries, bilaterally are normal with no evidence of significant stenosis or occlu aisha. The internal carotid arteries are normal bilaterally with no evidence of stenosis. The vertebral arteries in the neck are well visualized bilaterally and unremarkable. 2.1 cm right thyroid nodule is seen containing coarse central calcifications resulting in mild deform ity and mass effect on the trachea.. Further evaluation with thyroid ultrasound is recommended. Mild deformity of the right lamina papyracea likely old orbital blowout fracture. IMPRESSION: 1. No evidence for high-grade stenosis or occlusion of the carotid or vertebral arteries or intracra nial cerebral arteries. 2. Right thyroid nodule, for which ultrasound evaluation is recommended. Electronically signed by: Leo Foster MD (03/23/2020 6:13 PM) SHEREEN
[2020-03-23 18:26] LABS: CALCIUM 7.9 mg/dL (8.5-10.1); CREATININE 0.8 mg/dL (0.6-1.0); GFR 84.8; POTASSIUM 3.7 mmol/L (3.5-5.1)
--- NOTE | 2020-03-23 18:26 | HP ---
ADMIT DATE: 03/23/2020 CHIEF COMPLAINT: Headache. HISTORY OF PRESENT ILLNESS: The patient is a pleasant 30-year-old female who presents to the ER with headache. She had some associated musculoskeletal pain that has been rated at 10/10. While in the ER, we did a CAT scan, which is showing a small 4 mm area of attenuation, we are concerned it could be a bleed. I have discussed the case with the ER physician. We are going to admit the patient and consult Neurology and Neurosurgery. PAST MEDICAL HISTORY: Benign. ALLERGIES: None. FAMILY HISTORY: Diabetes. SOCIAL HISTORY: She does not drink, smoke or take drugs. MEDICATIONS: Reviewed, please refer to the MRAD. REVIEW OF SYSTEMS: GENERAL: No history of weight change, weakness or fevers. SKIN: No bruising, hair changes or rashes. EYES: No blurred, double or loss of vision. NOSE AND THROAT: No history of nosebleeds, hoarseness or sore throat. HEART: No history of palpitations, chest pain or shortness of breath on exertion. LUNGS: Denies cough, hemoptysis, wheezing or shortness of breath. GASTROINTESTINAL: Denies changes in appetite, nausea, vomiting, diarrhea or constipation. GENITOURINARY: No history of frequency, urgency, hesitancy or nocturia. NEUROLOGIC: She complains of headache. PSYCHIATRIC: No history of panic, anxiety or depression. ENDOCRINE: No history of heat or cold intolerance, polyuria or polydipsia. EXTREMITIES: Denies muscle weakness, joint pain, pain on walking or stiffness. PHYSICAL EXAMINATION: VITALS: Within normal limits and are stable. GENERAL: No apparent distress. Alert and oriented. HEENT: Normal cephalic atraumatic, external auditory canals are patent EYES: Extraocular muscles are intact, pupils are equally round and reactive to light and accommodation MUSCULOSKELETAL: Well developed, well nourished, good range of motion ENDOCRINE: No thyromegaly was palpated LYMPHATICS: No cervical chain or axillary nodes were noted HEMATOPOIETIC: No bruising NECK: Supple, no JVD, no thyromegaly was noted. LUNGS: Clear to auscultation in all lung campos without rhonchi or wheezing. HEART: RRR, S1, S2 present. Peripheral pulses intact, no obvious murmurs were noted. ABDOMEN: Soft, nontender. Positive bowel sounds no organomegaly, normal bowel sounds. EXTREMITIES: Without any cyanosis, clubbing, or edema. Pedal pulses intact, Homans sign is negative. NEUROLOGIC: Normal speech, normal tone. A & O x3, moves all extremities, no obvious focal deficits. PSYCHIATRIC: Normal affect, normal mood. Stable. SKIN: No ulcerations or rashes, good skin turgor, no jaundice. VASCULAR: Good capillary refill, neurovascular bundle appears to be intact. LABORATORY DATA: White count is 8. CT of the head shows a 4 mm hyperattenuation which could be a possible bleed versus calcium deposition. ASSESSMENT AND PLAN: Headache with abnormal CT concerning for central nervous system hemorrhage. The patient will be admitted. We will consult Neurosurgery. Consult Neurology. Home medications, deep vein thrombosis prophylaxis, cardiac monitoring, neuro checks. PROGNOSIS: Guarded. LARISSA TOVAR DO DR: DEISY/bari JOB#: [id number] / [id number]
[2020-03-23 18:30] LABS: ALBUMIN/GLOBULIN RATIO 0.8 (1.0-1.7); TOTAL BILIRUBIN 0.3 mg/dL (0.2-1.0); TOTAL PROTEIN 6.9 g/dL (6.4-8.2)
[2020-03-23 19:19] LABS: % EOS 16 % (0-5); % LYMPHS 42 % (24-48); % MONOS 6 % (0-10); % SEGS 36 % (35-66); PLT ESTIMATE ADEQUATE (ADEQUATE)
[2020-03-23] MEDS ORDERED: ONDANSETRON PF 4 MG/2 ML VIAL. IV PRN (21:00)
[2020-03-23] MEDS ORDERED: MORPHINE SULFATE 4 MG/ML VIAL. IV PRN (21:00)
[2020-03-23 22:25] VITALS: BP 105/66
[2020-03-24 02:43] VITALS: BP 110/60
[2020-03-24 07:00] VITALS: BP 108/62
[2020-03-24 11:00] VITALS: BP 100/63
--- NOTE | 2020-03-24 12:19 | PDOC ---
PROGRESS NOTES Date of Service: DATE: 03/24/20 TIME: 12:19 Chief Complaint Chief Complaint =========HOSPITAL D/C SUMMARY======== DATE OF ADMIT 03-23-20 DATE OF D/C 03-24-[address] HEAD, MRI HEAD CONSULTS DR REYNOLDS, NEUROLOGY COMPLICATIONS NONE F/U PCP 2-7 DAYS ASSESSMENT AND PLAN: Headache with abnormal CT concerning for central nervous system hemorrhage. COVID 19 POS, Asymptomatic morbid obesity admitted. consult Neurosurgery. cancelled Consult Neurology. Home medications, deep vein thrombosis prophylaxis, cardiac monitoring, neuro checks. PROGNOSIS: good . 03-24 seen by luke Benitez for d/c today per RN D/C PLANNING 26 MIN History of Present Illness History of Present Illness CHIEF COMPLAINT: Headache. HISTORY OF PRESENT ILLNESS: The patient is a pleasant 30-year-old female who presents to the ER with headache. She had some associated musculoskeletal pain that has been rated at 10/10. While in the ER, we did a CAT scan, which is showing a small 4 mm area of attenuation, we are concerned it could be a bleed. I have discussed the case with the ER physician. We are going to admit the patient and consult Neurology and Neurosurgery. PAST MEDICAL HISTORY: Benign. ALLERGIES: None. FAMILY HISTORY: Diabetes. SOCIAL HISTORY: She does not drink, smoke or take drugs. MEDICATIONS: Reviewed, please refer to the MRAD. REVIEW OF SYSTEMS: GENERAL: No history of weight change, weakness or fevers. SKIN: No bruising, hair changes or rashes. EYES: No blurred, double or loss of vision. NOSE AND THROAT: No history of nosebleeds, hoarseness or sore throat. HEART: No history of palpitations, chest pain or shortness of breath on exertion. LUNGS: Denies cough, hemoptysis, wheezing or shortness of breath. GASTROINTESTINAL: Denies changes in appetite, nausea, vomiting, diarrhea or constipation. GENITOURINARY: No history of frequency, urgency, hesitancy or nocturia. NEUROLOGIC: She complains of headache. PSYCHIATRIC: No history of panic, anxiety or depression. ENDOCRINE: No history of heat or cold intolerance, polyuria or polydipsia. EXTREMITIES: Denies muscle weakness, joint pain, pain on walking or stiffness. Vitals Vitals Vital Signs Date Time Temp Pulse Resp B/P (MAP) Pulse Ox O2 Delivery O2 Flow Rate FiO2 03/24/20 11:00 97.4 69 18 100/63 (75) 100 Room Air 97.4 Physical Exam Physical Exam GENERAL: No apparent distress. Alert and oriented. HEENT: Normal cephalic atraumatic, external auditory canals are patent EYES: Extraocular muscles are intact, pupils are equally round and reactive to light and accommodation MUSCULOSKELETAL: Well developed, well nourished, good range of motion ENDOCRINE: No thyromegaly was palpated LYMPHATICS: No cervical chain or axillary nodes were noted HEMATOPOIETIC: No bruising NECK: Supple, no JVD, no thyromegaly was noted. LUNGS: Clear to auscultation in all lung campos without rhonchi or wheezing. HEART: RRR, S1, S2 present. Peripheral pulses intact, no obvious murmurs were noted. ABDOMEN: Soft, nontender. Positive bowel sounds no organomegaly, normal bowel sounds. EXTREMITIES: Without any cyanosis, clubbing, or edema. Pedal pulses intact, Homans sign is negative. NEUROLOGIC: Normal speech, normal tone. A & O x3, moves all extremities, no obvious focal deficits. PSYCHIATRIC: Normal affect, normal mood. Stable. SKIN: No ulcerations or rashes, good skin turgor, no jaundice. VASCULAR: Good capillary refill, neurovascular bundle appears to be intact. LABORATORY DATA: White count is 8. CT of the head shows a 4 mm hyperattenuation which could be a possible bleed versus calcium deposition. General: Alert, Oriented X3, Cooperative, No acute distress Heart: Regular rate Lungs: Clear Abdomen: Normal bowel sounds, Soft, No tenderness Extremities: No clubbing, No cyanosis Skin: No significant lesion Labs LABS Signed PATIENT: JESSIKA MCGRAW ACCOUNT: [id number] : 1990 LOCATION: [address] [place] [address] AGE: 30 SEX: F EXAM STATUS: ADM IN ORD. PHYSICIAN: PAPO ZARAGOZA MD REASON: HEADACHE EVAL HYPERDENSITY , A.M. PER DR ZARAGOZA PROCEDURE: BRAIN W/O CONTRAST MRI BRAIN WO History:Reason: HEADACHE EVAL HYPERDENSITY Technique: Multiplanar, multi sequential MR imaging was performed of the brain without contrast. Comparison: CT March 23, 2020 Findings: No acute infarct. No mass effect. No hydrocephalus. Gradient hypointensities within the bilateral basal ganglia related to calcifications, right greater than left. This corresponds with previously seen CT hyperdensity. No acute intracranial hemorrhage. Imaged orbits are unremarkable. Imaged paranasal sinuses and mastoid air cells are clear. Chronic right mediolateral wall defect. Impression: 1. No acute intracranial abnormality. 2. Bilateral basal ganglia calcifications, right greater than left, corresponding with CT hyperdensity. Electronically signed by: Johan Sims DO (03/24/2020 1:22 PM) [id number] DICTATED and SIGNED BY: JOHAN SIMS DO DATE: 03/24/20 [id number] PATIENT: JESSIKA MCGRAW ACCOUNT: [id number] : 1990 LOCATION: ER AGE: 30 SEX: F EXAM STATUS: REG ER ORD. PHYSICIAN: PAPO ZARAGOZA MD REASON: HEADACHE PROCEDURE: CT ANGIOGRAPHY HEAD AND NECK CLINICAL HISTORY: Reason: HEADACHE / Spl. Instructions: [id number] / History: COMPARISON: None available. TECHNIQUE: CT angiogram of the head and neck was performed following the administration of IV contrast. Multiplanar reconstructed images were obtained including 3D reconstructed images performed on an independent work station. Stenosis if present in the carotid arteries were measured using NASCET criteria. PQRS compliance statement - One or more of the following individualized dose reduction techniques were utilized for this study: 1. Automated exposure control 2. Adjustment of the mA and/or kV according to patient size 3. Use of iterative reconstruction technique FINDINGS: CTA of the intracranial circulation reveals normal appearing distal internal carotid arteries including the distal cervical, petrous, cavernous and supraclinoid portions. The anterior cerebral arteries are well visualized and without evidence of stenosis or occlusion. The middle cerebral arteries are well visualized and without evidence of stenosis or occlusion. The posterior cerebral arteries are well visualized and without evidence of stenosis or occlusion. The vertebral basilar system is normal with no evidence of stenosis or occlusion. In the neck, the origins of the great vessels are unremarkable. The common carotid arteries, bilaterally are normal with no evidence of significant stenosis or occlusion. The internal carotid arteries are normal bilaterally with no evidence of stenosis. The vertebral arteries in the neck are well visualized bilaterally and unremarkable. 2.1 cm right thyroid nodule is seen containing coarse central calcifications r esulting in mild deformity and mass effect on the trachea.. Further evaluation with thyroid ultrasound is recommended. Mild deformity of the right lamina papyracea likely old orbital blowout fracture. IMPRESSION: 1. No evidence for high-grade stenosis or occlusion of the carotid or vertebral arteries or intracranial cerebral arteries. 2. Right thyroid nodule, for which ultrasound evaluation is recommended. Electronically signed by: Leo Lowe MD (03/23/2020 6:13 PM) [facility] DICTATED and SIGNED BY: LEO LOWE MD DATE: 03/23/[id number] head without contrast: Reason for examination: Headache. Axial images were obtained through the brain. No contrast was administered. Exposure: One or more of the following individualized dose reduction techniques were utilized for this examination: 1. Automated exposure control 2. A djustment of the mA and/or kV according to patient size 3. Use of iterative reconstruction technique. Ventricular systems are symmetric and not abnormally dilated. No midline shift is seen. There is a small hyperdensity within the right basal ganglia near the genu of the internal capsule measuring 4 mm in size. This has a Hounsfield unit value of 75. This likely represents basal ganglia calcification however a small focus of hemorrhage cannot be excluded. This may be further characterized by MRI. No other focal lesions are seen in the brain. No abnormalities are seen at the orbits. The paranasal sinuses and mastoid air cells are clear. No acute skull abnormality is seen. IMPRESSION: 4 mm hyperdensity in the right basal ganglia near the genu of the internal capsule. This may represent basal ganglia calcification however small hemorrhage cannot be excluded based on Hounsfield unit measurement. Further evaluation with MRI may be helpful. Electronically signed by: Ollie Adame MD (03/23/2020 4:29 PM) [id number] DICTATED and SIGNED BY: OLLIE ADAME MD DATE: 03/23/20 [id number] Laboratory Tests Test 03/23/20 15:34 03/23/20 15:44 03/23/20 16:00 03/23/20 17:45 Urine Collection Type Void Urine Color Yellow Urine Clarity Clear Urine pH 6.5 (<5.0-8.0) Urine Specific [place] 1.015 (1.000-1.030) Urine Protein Negative mg/dL (NEG-TRACE) Urine Glucose (UA) Negative mg/dL (NEG) Urine Ketones (Stick) Negative mg/dL (NEG) Urine Blood Negative (NEG) Urine Nitrite Negative (NEG) Urine Bilirubin Negative (NEG) Urine Urobilinogen Dipstick 1.0 mg/dL (0.2 mg/dL) Urine Leukocyte Esterase Small (NEG) Urine RBC Rare /HPF (0-2) Urine WBC Occ /HPF (0-4) Urine Squamous Epithelial Cells Mod /LPF Urine Bacteria Few /HPF (0-FEW) Bedside Urine HCG, Qualitative Hcg negative (Negative) Coronavirus (PCR) Detected (Not Detected) Influenza Type A Antigen Negative (NEGATIVE) Influenza Type B Antigen Negative (NEGATIVE) White Blood Count 8.1 x10^3/uL (4.0-11.0) Red Blood Count 4.27 x10^6/uL (3.50-5.40) Hemoglobin 10.7 g/dL (12.0-15.5) Hematocrit 33.8 % (36.0-47.0) Mean Corpuscular Volume 79 fL (79-100) Mean Corpuscular Hemoglobin 25 pg (25-35) Mean Corpuscular Hemoglobin Concent 32 g/dL (31-37) Red Cell Distribution Width 15.8 % (11.5-14.5) Platelet Count 189 x10^3/uL (140-400) Neutrophils (%) (Auto) 36 % (31-73) Lymphocytes (%) (Auto) 34 % (24-48) Monocytes (%) (Auto) 8 % (0-9) Eosinophils (%) (Auto) 21 % (0-3) Basophils (%) (Auto) 0 % (0-3) Neutrophils # (Auto) 2.9 x10^3/uL (1.8-7.7) Lymphocytes # (Auto) 2.7 x10^3/uL (1.0-4.8) Monocytes # (Auto) 0.7 x10^3/uL (0.0-1.1) Eosinophils # (Auto) 1.7 x10^3/uL (0.0-0.7) Basophils # (Auto) 0.0 x10^3/uL (0.0-0.2) Segmented Neutrophils % 36 % (35-66) Lymphocytes % 42 % (24-48) Monocytes % 6 % (0-10) Eosinophils % 16 % (0-5) Platelet Estimate Adequate (ADEQUATE) Sodium Level 138 mmol/L (136-145) Potassium Level 3.7 mmol/L (3.5-5.1) Chloride Level 104 mmol/L (98-107) Carbon Dioxide Level 26 mmol/L (21-32) Anion Gap 8 (6-14) Blood Urea Nitrogen 9 mg/dL (7-20) Creatinine 0.8 mg/dL (0.6-1.0) Estimated GFR (Cockcroft-Gault) 84.8 BUN/Creatinine Ratio 11 (6-20) Glucose Level 74 mg/dL (70-99) Calcium Level 7.9 mg/dL (8.5-10.1) Total Bilirubin 0.3 mg/dL (0.2-1.0) Aspartate Amino Transf (AST/SGOT) 21 U/L (15-37) Alanine Aminotransferase (ALT/SGPT) 37 U/L (14-59) Alkaline Phosphatase 54 U/L (46-116) Total Protein 6.9 g/dL (6.4-8.2) Albumin 3.0 g/dL (3.4-5.0) Albumin/Globulin Ratio 0.8 (1.0-1.7) Assessment and Plan Assessmemt and Plan Problems Medical Problems: (1) Headache Status: Acute (2) Severe headache Status: Acute Comment Review of Relevant I have reviewed the following items savanna (where applicable) has been applied. Labs Laboratory Tests Test 03/23/20 15:34 03/23/20 15:44 03/23/20 16:00 03/23/20 17:45 Urine Collection Type Void Urine Color Yellow Urine Clarity Clear Urine pH 6.5 (<5.0-8.0) Urine Specific [place] 1.015 (1.000-1.030) Urine Protein Negative mg/dL (NEG-TRACE) Urine Glucose (UA) Negative mg/dL (NEG) Urine Ketones (Stick) Negative mg/dL (NEG) Urine Blood Negative (NEG) Urine Nitrite Negative (NEG) Urine Bilirubin Negative (NEG) Urine Urobilinogen Dipstick 1.0 mg/dL (0.2 mg/dL) Urine Leukocyte Esterase Small (NEG) Urine RBC Rare /HPF (0-2) Urine WBC Occ /HPF (0-4) Urine Squamous Epithelial Cells Mod /LPF Urine Bacteria Few /HPF (0-FEW) Bedside Urine HCG, Qualitative Hcg negative (Negative) Coronavirus (PCR) Detected (Not Detected) Influenza Type A Antigen Negative (NEGATIVE) Influenza Type B Antigen Negative (NEGATIVE) White Blood Count 8.1 x10^3/uL (4.0-11.0) Red Blood Count 4.27 x10^6/uL (3.50-5.40) Hemoglobin 10.7 g/dL (12.0-15.5) Hematocrit 33.8 % (36.0-47.0) Mean Corpuscular Volume 79 fL (79-100) Mean Corpuscular Hemoglobin 25 pg (25-35) Mean Corpuscular Hemoglobin Concent 32 g/dL (31-37) Red Cell Distribution Width 15.8 % (11.5-14.5) Platelet Count 189 x10^3/uL (140-400) Neutrophils (%) (Auto) 36 % (31-73) Lymphocytes (%) (Auto) 34 % (24-48) Monocytes (%) (Auto) 8 % (0-9) Eosinophils (%) (Auto) 21 % (0-3) Basophils (%) (Auto) 0 % (0-3) Neutrophils # (Auto) 2.9 x10^3/uL (1.8-7.7) Lymphocytes # (Auto) 2.7 x10^3/uL (1.0-4.8) Monocytes # (Auto) 0.7 x10^3/uL (0.0-1.1) Eosinophils # (Auto) 1.7 x10^3/uL (0.0-0.7) Basophils # (Auto) 0.0 x10^3/uL (0.0-0.2) Segmented Neutrophils % 36 % (35-66) Lymphocytes % 42 % (24-48) Monocytes % 6 % (0-10) Eosinophils % 16 % (0-5) Platelet Estimate Adequate (ADEQUATE) Sodium Level 138 mmol/L (136-145) Potassium Level 3.7 mmol/L (3.5-5.1) Chloride Level 104 mmol/L (98-107) Carbon Dioxide Level 26 mmol/L (21-32) Anion Gap 8 (6-14) Blood Urea Nitrogen 9 mg/dL (7-20) Creatinine 0.8 mg/dL (0.6-1.0) Estimated GFR (Cockcroft-Gault) 84.8 BUN/Creatinine Ratio 11 (6-20) Glucose Level 74 mg/dL (70-99) Calcium Level 7.9 mg/dL (8.5-10.1) Total Bilirubin 0.3 mg/dL (0.2-1.0) Aspartate Amino Transf (AST/SGOT) 21 U/L (15-37) Alanine Aminotransferase (ALT/SGPT) 37 U/L (14-59) Alkaline Phosphatase 54 U/L (46-116) Total Protein 6.9 g/dL (6.4-8.2) Albumin 3.0 g/dL (3.4-5.0) Albumin/Globulin Ratio 0.8 (1.0-1.7) Laboratory Tests Test 03/23/20 15:34 03/23/20 15:44 03/23/20 16:00 03/23/20 17:45 Urine Collection Type Void Urine Color Yellow Urine Clarity Clear Urine pH 6.5 (<5.0-8.0) Urine Specific [place] 1.015 (1.000-1.030) Urine Protein Negative mg/dL (NEG-TRACE) Urine Glucose (UA) Negative mg/dL (NEG) Urine Ketones (Stick) Negative mg/dL (NEG) Urine Blood Negative (NEG) Urine Nitrite Negative (NEG) Urine Bilirubin Negative (NEG) Urine Urobilinogen Dipstick 1.0 mg/dL (0.2 mg/dL) Urine Leukocyte Esterase Small (NEG) Urine RBC Rare /HPF (0-2) Urine WBC Occ /HPF (0-4) Urine Squamous Epithelial Cells Mod /LPF Urine Bacteria Few /HPF (0-FEW) Bedside Urine HCG, Qualitative Hcg negative (Negative) Coronavirus (PCR) Detected (Not Detected) Influenza Type A Antigen Negative (NEGATIVE) Influenza Type B Antigen Negative (NEGATIVE) White Blood Count 8.1 x10^3/uL (4.0-11.0) Red Blood Count 4.27 x10^6/uL (3.50-5.40) Hemoglobin 10.7 g/dL (12.0-15.5) Hematocrit 33.8 % (36.0-47.0) Mean Corpuscular Volume 79 fL (79-100) Mean Corpuscular Hemoglobin 25 pg (25-35) Mean Corpuscular Hemoglobin Concent 32 g/dL (31-37) Red Cell Distribution Width 15.8 % (11.5-14.5) Platelet Count 189 x10^3/uL (140-400) Neutrophils (%) (Auto) 36 % (31-73) Lymphocytes (%) (Auto) 34 % (24-48) Monocytes (%) (Auto) 8 % (0-9) Eosinophils (%) (Auto) 21 % (0-3) Basophils (%) (Auto) 0 % (0-3) Neutrophils # (Auto) 2.9 x10^3/uL (1.8-7.7) Lymphocytes # (Auto) 2.7 x10^3/uL (1.0-4.8) Monocytes # (Auto) 0.7 x10^3/uL (0.0-1.1) Eosinophils # (Auto) 1.7 x10^3/uL (0.0-0.7) Basophils # (Auto) 0.0 x10^3/uL (0.0-0.2) Segmented Neutrophils % 36 % (35-66) Lymphocytes % 42 % (24-48) Monocytes % 6 % (0-10) Eosinophils % 16 % (0-5) Platelet Estimate Adequate (ADEQUATE) Sodium Level 138 mmol/L (136-145) Potassium Level 3.7 mmol/L (3.5-5.1) Chloride Level 104 mmol/L (98-107) Carbon Dioxide Level 26 mmol/L (21-32) Anion Gap 8 (6-14) Blood Urea Nitrogen 9 mg/dL (7-20) Creatinine 0.8 mg/dL (0.6-1.0) Estimated GFR (Cockcroft-Gault) 84.8 BUN/Creatinine Ratio 11 (6-20) Glucose Level 74 mg/dL (70-99) Calcium Level 7.9 mg/dL (8.5-10.1) Total Bilirubin 0.3 mg/dL (0.2-1.0) Aspartate Amino Transf (AST/SGOT) 21 U/L (15-37) Alanine Aminotransferase (ALT/SGPT) 37 U/L (14-59) Alkaline Phosphatase 54 U/L (46-116) Total Protein 6.9 g/dL (6.4-8.2) Albumin 3.0 g/dL (3.4-5.0) Albumin/Globulin Ratio 0.8 (1.0-1.7) Medications Current Medications Sodium Chloride 1,000 ml @ 1,000 mls/hr 1X ONCE IV Last administered on 03/23/20at 18:29; Start 03/23/20 at 16:00; Stop 03/23/20 at 16:59; Status DC Iohexol (Omnipaque 350 Mg/ml) 75 ml 1X ONCE IV Last administered on 03/23/20at 17:29; Start 03/23/20 at 17:30; Stop 03/23/20 at 17:31; Status DC Info (CONTRAST GIVEN -- Rx MONITORING) 1 each PRN DAILY PRN MC SEE COMMENTS; Start 03/23/20 at 17:30; Stop 03/25/20 at 17:29 Ondansetron HCl (Zofran) 4 mg PRN Q8HRS PRN IV NAUSEA/VOMITING; Start 03/23/20 at 21:00; Stop 03/24/20 at 20:59 Morphine Sulfate (Morphine Sulfate) 4 mg PRN Q2HR PRN IV PAIN; Start 03/23/20 at 21:00; Stop 03/24/20 at 20:59 Active Scripts Active Ibuprofen 400 Mg Tablet 800 Mg PO PRN Q8HRS PRN Vitals/I & O Vital Sign - Last 24 Hours 03/23/20 03/23/20 03/23/20 03/23/20 15:49 16:19 16:49 17:30 Temp 97.3 97.3 97.3 97.3 97.3 97.3 97.3 97.3 Pulse 84 88 82 70 Resp 18 22 22 24 B/P (MAP) 119/74 (89) Pulse Ox 100 100 100 100 O2 Delivery Room Air 03/23/20 03/23/20 03/23/20 03/23/20 18:30 19:00 20:00 20:30 Temp 97.3 97.3 97.3 97.3 97.3 97.3 97.3 97.3 Pulse 78 76 73 74 Resp 24 24 23 Pulse Ox 100 100 100 100 03/23/20 03/23/20 03/23/20 03/23/20 21:00 21:31 22:00 22:25 Temp 97.3 97.3 97.3 99.8 97.3 97.3 97.3 99.8 Pulse 83 77 78 66 Resp 22 24 18 18 B/P (MAP) 105/66 (79) Pulse Ox 100 100 100 100 O2 Delivery Room Air 03/23/20 03/24/20 03/24/20 03/24/20 23:00 02:43 07:00 08:10 Temp 98.3 97.4 98.3 97.4 Pulse 76 71 Resp 18 18 B/P (MAP) 110/60 (77) 108/62 (77) Pulse Ox 99 100 O2 Delivery Room Air Room Air Room Air Room Air 03/24/20 11:00 Temp 97.4 97.4 Pulse 69 Resp 18 B/P (MAP) 100/63 (75) Pulse Ox 100 O2 Delivery Room Air Intake and Output 03/23/20 03/23/20 03/24/20 15:00 23:00 07:00 Intake Total 1000 ml Output Total 400 ml Balance 1000 ml -400 ml Justicifation of Admission Dx: Justifications for Admission: Justification of Admission Dx: No LAURA BOUCHER MD Mar 24, 2020 12:19
--- NOTE | 2020-03-24 13:24 | RAD ---
MRI BRAIN WO History:Reason: HEADACHE EVAL HYPERDENSITY Technique: Multiplanar, multi sequential MR imaging was performed of the brain without contrast. Comparison: CT March 23, 2020 Findings: No acute infarct. No mass effect. No hydrocephalus. Gradient hypointensities within the bilateral basal ganglia related to calcifications, right greater than left. This corresponds with previously seen CT hyperdensity. No acute intracranial hemorrhage. Imaged orbits are unremarkable. Imaged paranasal sinuses and mastoid air cells are clear. Chronic rig ht mediolateral wall defect. Impression: 1. No acute intracranial abnormality. 2. Bilateral basal ganglia calcifications, right greater than left, corresponding with CT hyperdensi ty. Electronically signed by: Johan Sims DO (03/24/2020 1:22 PM) [id number]
--- NOTE | 2020-03-24 13:56 | PDOC3 ---
Discharge Summary Date of Admission: Mar 23, 2020 Date of Discharge: Mar 24, 2020 Follow-Up: 3-5 days Admitting Diagnosis comment: Chief Complaint =========HOSPITAL D/C SUMMARY======== DATE OF ADMIT 03-23-20 DATE OF D/C 03-24-[address] HEAD, MRI HEAD CONSULTS DR REYNOLDS, NEUROLOGY COMPLICATIONS NONE D/C MEDS SEE MAR F/U PCP 2-7 DAYS DISCHARGE DX ASSESSMENT AND PLAN: Headache with abnormal CT concerning for central nervous system hemorrhage. COVID 19 POS, Asymptomatic morbid obesity 2.1 cm right thyroid nodule is seen containing coarse central calcifications resulting in mild deformity and mass effect on the trachea.. Further evaluation with thyroid ultrasound is recommended. admitted. consult Neurosurgery. cancelled Consult Neurology. Home medications, deep vein thrombosis prophylaxis, cardiac monitoring, neuro checks. 2.1 cm right thyroid nodule is seen containing coarse central calcifications resulting in mild deformity and mass effect on the trachea.. Further evaluation with thyroid ultrasound is recommended. OUT PATIENT SOON PER PCP PROGNOSIS: good . 03-24 seen by luke Benitez for d/c today per RN D/C PLANNING 26 MIN History of Present Illness History of Present Illness CHIEF COMPLAINT: Headache. HISTORY OF PRESENT ILLNESS: The patient is a pleasant 30-year-old female who presents to the ER with headache. She had some associated musculoskeletal pain that has been rated at 10/10. While in the ER, we did a CAT scan, which is showing a small 4 mm area of attenuation, we are concerned it could be a bleed. I have discussed the case with the ER physician. We are going to admit the patient and consult Neurology and Neurosurgery. PAST MEDICAL HISTORY: Benign. ALLERGIES: None. FAMILY HISTORY: Diabetes. SOCIAL HISTORY: She does not drink, smoke or take drugs. MEDICATIONS: Reviewed, please refer to the MRAD. REVIEW OF SYSTEMS: GENERAL: No history of weight change, weakness or fevers. SKIN: No bruising, hair changes or rashes. EYES: No blurred, double or loss of vision. NOSE AND THROAT: No history of nosebleeds, hoarseness or sore throat. HEART: No history of palpitations, chest pain or shortness of breath on exertion. LUNGS: Denies cough, hemoptysis, wheezing or shortness of breath. GASTROINTESTINAL: Denies changes in appetite, nausea, vomiting, diarrhea or constipation. GENITOURINARY: No history of frequency, urgency, hesitancy or nocturia. NEUROLOGIC: She complains of headache. PSYCHIATRIC: No history of panic, anxiety or depression. ENDOCRINE: No history of heat or cold intolerance, polyuria or polydipsia. EXTREMITIES: Denies muscle weakness, joint pain, pain on walking or stiffness. Vitals Vitals Vital Signs Date Time Temp Pulse Resp B/P (MAP) Pulse Ox O2 Delivery O2 Flow Rate FiO2 03/24/20 11:00 97.4 69 18 100/63 (75) 100 Room Air 97.4 Physical Exam Physical Exam GENERAL: No apparent distress. Alert and oriented. HEENT: Normal cephalic atraumatic, external auditory canals are patent EYES: Extraocular muscles are intact, pupils are equally round and reactive to light and accommodation MUSCULOSKELETAL: Well developed, well nourished, good range of motion ENDOCRINE: No thyromegaly was palpated LYMPHATICS: No cervical chain or axillary nodes were noted HEMATOPOIETIC: No bruising NECK: Supple, no JVD, no thyromegaly was noted. LUNGS: Clear to auscultation in all lung campos without rhonchi or wheezing. HEART: RRR, S1, S2 present. Peripheral pulses intact, no obvious murmurs were noted. ABDOMEN: Soft, nontender. Positive bowel sounds no organomegaly, normal bowel sounds. EXTREMITIES: Without any cyanosis, clubbing, or edema. Pedal pulses intact, Homans sign is negative. NEUROLOGIC: Normal speech, normal tone. A & O x3, moves all extremities, no obvious focal deficits. PSYCHIATRIC: Normal affect, normal mood. Stable. SKIN: No ulcerations or rashes, good skin turgor, no jaundice. VASCULAR: Good capillary refill, neurovascular bundle appears to be intact. LABORATORY DATA: White count is 8. CT of the head shows a 4 mm hyperattenuation which could be a possible bleed versus calcium deposition. General: Alert, Oriented X3, Cooperative, No acute distress Heart: Regular rate Lungs: Clear Abdomen: Normal bowel sounds, Soft, No tenderness Extremities: No clubbing, No cyanosis Skin: No significant lesion Labs LABS Signed PATIENT: JESSIKA BOX ACCOUNT: [id number] : 1990 LOCATION: [address] [place] [address] AGE: 30 SEX: F EXAM STATUS: ADM IN ORD. PHYSICIAN: PAPO ZARAGOZA MD REASON: HEADACHE EVAL HYPERDENSITY , A.M. PER DR ZARAGOZA PROCEDURE: BRAIN W/O CONTRAST MRI BRAIN WO History:Reason: HEADACHE EVAL HYPERDENSITY Technique: Multiplanar, multi sequential MR imaging was performed of the brain without contrast. Comparison: CT March 23, 2020 Findings: No acute infarct. No mass effect. No hydrocephalus. Gradient hypointensities within the bilateral basal ganglia related to calcifications, right greater than left. This corresponds with previously seen CT hyperdensity. No acute intracranial hemorrhage. Imaged orbits are unremarkable. Imaged paranasal sinuses and mastoid air cells are clear. Chronic right mediolateral wall defect. Impression: 1. No acute intracranial abnormality. 2. Bilateral basal ganglia calcifications, right greater than left, corresponding with CT hyperdensity. Electronically signed by: Johan Sims DO (03/24/2020 1:22 PM) [id number] DICTATED and SIGNED BY: JOHAN SIMS DO DATE: 03/24/20 [id number] PATIENT: JESSIKA BOX ACCOUNT: [id number] : 1990 LOCATION: ER AGE: 30 SEX: F EXAM STATUS: REG ER ORD. PHYSICIAN: PAPO ZARAGOZA MD REASON: HEADACHE PROCEDURE: CT ANGIOGRAPHY HEAD AND NECK CLINICAL HISTORY: Reason: HEADACHE / Spl. Instructions: [id number] 75ML / History: COMPARISON: None available. TECHNIQUE: CT angiogram of the head and neck was performed following the administration of IV contrast. Multiplanar reconstructed images were obtained including 3D reconstructed images performed on an independent work station. Stenosis if present in the carotid arteries were measured using NASCET criteria. PQRS compliance statement - One or more of the following individualized dose reduction techniques were utilized for this study: 1. Automated exposure control 2. Adjustment of the mA and/or kV according to patient size 3. Use of iterative reconstruction technique FINDINGS: CTA of the intracranial circulation reveals normal appearing distal internal carotid arteries including the distal cervical, petrous, cavernous and supraclinoid portions. The anterior cerebral arteries are well visualized and without evidence of stenosis or occlusion. The middle cerebral arteries are well visualized and without evidence of stenosis or occlusion. The posterior cerebral arteries are well visualized and without evidence of stenosis or occlusion. The vertebral basilar system is normal with no evidence of stenosis or occlusion. In the neck, the origins of the great vessels are unremarkable. The common carotid arteries, bilaterally are normal with no evidence of significant stenosis or occlusion. The internal carotid arteries are normal bilaterally with no evidence of stenosis. The vertebral arteries in the neck are well visualized bilaterally and unremarkable. 2.1 cm right thyroid nodule is seen containing coarse central calcifications resulting in mild deformity and mass effect on the trachea.. Further evaluation with thyroid ultrasound is recommended. Mild deformity of the right lamina papyracea likely old orbital blowout fracture. IMPRESSION: 1. No evidence for high-grade stenosis or occlusion of the carotid or vertebral arteries or intracranial cerebral arteries. 2. Right thyroid nodule, for which ultrasound evaluation is recommended. Electronically signed by: Leo Lowe MD (03/23/2020 6:13 PM) [facility] DICTATED and SIGNED BY: LEO LOWE MD DATE: 03/23/[id number] head without contrast: Reason for examination: Headache. Axial images were obtained through the brain. No contrast was administered. Exposure: One or more of the following individualized dose reduction techniques were utilized for this examination: 1. Automated exposure control 2. Adjustment of the mA and/or kV according to patient size 3. Use of iterative reconstruction technique. Ventricular systems are symmetric and not abnormally dilated. No midline shift is seen. There is a small hyperdensity within the right basal ganglia near the genu of the internal capsule measuring 4 mm in size. This has a Hounsfield unit value of 75. This likely represents basal ganglia calcification however a small focus of hemorrhage cannot be excluded. This may be further characterized by MRI. No other focal lesions are seen in the brain. No abnormalities are seen at the orbits. The paranasal sinuses and mastoid air cells are clear. No acute skull abnormality is seen. IMPRESSION: 4 mm hyperdensity in the right basal ganglia near the genu of the internal capsule. This may represent basal ganglia calcification however small hemorrhage cannot be excluded based on Hounsfield unit measurement. Further evaluation with MRI may be helpful. Electronically signed by: Kristi Armas MD (03/23/2020 4:29 PM) [id number] FINAL DIAGNOSIS Problems Medical Problems: (1) Headache Status: Acute (2) Severe headache Status: Acute Brief Hospital Course Ms. Box is a 30 old [sex] who presented with [ HEADACHE, ABNORMAL CT HEAD] CONDITION AT DISCHARGE: Stable Discharge Medications Current Medications Sodium Chloride 1,000 ml @ 1,000 mls/hr 1X ONCE IV Last administered on 03/23/20at 18:29; Start 03/23/20 at 16:00; Stop 03/23/20 at 16:59; Status DC Iohexol (Omnipaque 350 Mg/ml) 75 ml 1X ONCE IV Last administered on 03/23/20at 17:29; Start 03/23/20 at 17:30; Stop 03/23/20 at 17:31; Status DC Info (CONTRAST GIVEN -- Rx MONITORING) 1 each PRN DAILY PRN MC SEE COMMENTS; Start 03/23/20 at 17:30; Stop 03/25/20 at 17:29 Ondansetron HCl (Zofran) 4 mg PRN Q8HRS PRN IV NAUSEA/VOMITING; Start 03/23/20 at 21:00; Stop 03/24/20 at 20:59 Morphine Sulfate (Morphine Sulfate) 4 mg PRN Q2HR PRN IV PAIN; Start 03/23/20 at 21:00; Stop 03/24/20 at 20:59 Active Scripts Active Ibuprofen 400 Mg Tablet 800 Mg PO PRN Q8HRS PRN Vital Signs Vital Signs Date Time Temp Pulse Resp B/P (MAP) Pulse Ox O2 Delivery O2 Flow Rate FiO2 03/24/20 11:00 97.4 69 18 100/63 (75) 100 Room Air 97.4 Labs Laboratory Tests Test 03/23/20 15:34 03/23/20 15:44 03/23/20 16:00 03/23/20 17:45 Urine Collection Type Void Urine Color Yellow Urine Clarity Clear Urine pH 6.5 (<5.0-8.0) Urine Specific Henning 1.015 (1.000-1.030) Urine Protein Negative mg/dL (NEG-TRACE) Urine Glucose (UA) Negative mg/dL (NEG) Urine Ketones (Stick) Negative mg/dL (NEG) Urine Blood Negative (NEG) Urine Nitrite Negative (NEG) Urine Bilirubin Negative (NEG) Urine Urobilinogen Dipstick 1.0 mg/dL (0.2 mg/dL) Urine Leukocyte Esterase Small (NEG) Urine RBC Rare /HPF (0-2) Urine WBC Occ /HPF (0-4) Urine Squamous Epithelial Cells Mod /LPF Urine Bacteria Few /HPF (0-FEW) Bedside Urine HCG, Qualitative Hcg negative (Negative) Coronavirus (PCR) Detected (Not Detected) Influenza Type A Antigen Negative (NEGATIVE) Influenza Type B Antigen Negative (NEGATIVE) White Blood Count 8.1 x10^3/uL (4.0-11.0) Red Blood Count 4.27 x10^6/uL (3.50-5.40) Hemoglobin 10.7 g/dL (12.0-15.5) Hematocrit 33.8 % (36.0-47.0) Mean Corpuscular Volume 79 fL (79-100) Mean Corpuscular Hemoglobin 25 pg (25-35) Mean Corpuscular Hemoglobin Concent 32 g/dL (31-37) Red Cell Distribution Width 15.8 % (11.5-14.5) Platelet Count 189 x10^3/uL (140-400) Neutrophils (%) (Auto) 36 % (31-73) Lymphocytes (%) (Auto) 34 % (24-48) Monocytes (%) (Auto) 8 % (0-9) Eosinophils (%) (Auto) 21 % (0-3) Basophils (%) (Auto) 0 % (0-3) Neutrophils # (Auto) 2.9 x10^3/uL (1.8-7.7) Lymphocytes # (Auto) 2.7 x10^3/uL (1.0-4.8) Monocytes # (Auto) 0.7 x10^3/uL (0.0-1.1) Eosinophils # (Auto) 1.7 x10^3/uL (0.0-0.7) Basophils # (Auto) 0.0 x10^3/uL (0.0-0.2) Segmented Neutrophils % 36 % (35-66) Lymphocytes % 42 % (24-48) Monocytes % 6 % (0-10) Eosinophils % 16 % (0-5) Platelet Estimate Adequate (ADEQUATE) Sodium Level 138 mmol/L (136-145) Potassium Level 3.7 mmol/L (3.5-5.1) Chloride Level 104 mmol/L (98-107) Carbon Dioxide Level 26 mmol/L (21-32) Anion Gap 8 (6-14) Blood Urea Nitrogen 9 mg/dL (7-20) Creatinine 0.8 mg/dL (0.6-1.0) Estimated GFR (Cockcroft-Gault) 84.8 BUN/Creatinine Ratio 11 (6-20) Glucose Level 74 mg/dL (70-99) Calcium Level 7.9 mg/dL (8.5-10.1) Total Bilirubin 0.3 mg/dL (0.2-1.0) Aspartate Amino Transf (AST/SGOT) 21 U/L (15-37) Alanine Aminotransferase (ALT/SGPT) 37 U/L (14-59) Alkaline Phosphatase 54 U/L (46-116) Total Protein 6.9 g/dL (6.4-8.2) Albumin 3.0 g/dL (3.4-5.0) Albumin/Globulin Ratio 0.8 (1.0-1.7) Laboratory Tests Test 03/23/20 15:34 03/23/20 15:44 03/23/20 16:00 03/23/20 17:45 Urine Collection Type Void Urine Color Yellow Urine Clarity Clear Urine pH 6.5 (<5.0-8.0) Urine Specific Henning 1.015 (1.000-1.030) Urine Protein Negative mg/dL (NEG-TRACE) Urine Glucose (UA) Negative mg/dL (NEG) Urine Ketones (Stick) Negative mg/dL (NEG) Urine Blood Negative (NEG) Urine Nitrite Negative (NEG) Urine Bilirubin Negative (NEG) Urine Urobilinogen Dipstick 1.0 mg/dL (0.2 mg/dL) Urine Leukocyte Esterase Small (NEG) Urine RBC Rare /HPF (0-2) Urine WBC Occ /HPF (0-4) Urine Squamous Epithelial Cells Mod /LPF Urine Bacteria Few /HPF (0-FEW) Bedside Urine HCG, Qualitative Hcg negative (Negative) Coronavirus (PCR) Detected (Not Detected) Influenza Type A Antigen Negative (NEGATIVE) Influenza Type B Antigen Negative (NEGATIVE) White Blood Count 8.1 x10^3/uL (4.0-11.0) Red Blood Count 4.27 x10^6/uL (3.50-5.40) Hemoglobin 10.7 g/dL (12.0-15.5) Hematocrit 33.8 % (36.0-47.0) Mean Corpuscular Volume 79 fL (79-100) Mean Corpuscular Hemoglobin 25 pg (25-35) Mean Corpuscular Hemoglobin Concent 32 g/dL (31-37) Red Cell Distribution Width 15.8 % (11.5-14.5) Platelet Count 189 x10^3/uL (140-400) Neutrophils (%) (Auto) 36 % (31-73) Lymphocytes (%) (Auto) 34 % (24-48) Monocytes (%) (Auto) 8 % (0-9) Eosinophils (%) (Auto) 21 % (0-3) Basophils (%) (Auto) 0 % (0-3) Neutrophils # (Auto) 2.9 x10^3/uL (1.8-7.7) Lymphocytes # (Auto) 2.7 x10^3/uL (1.0-4.8) Monocytes # (Auto) 0.7 x10^3/uL (0.0-1.1) Eosinophils # (Auto) 1.7 x10^3/uL (0.0-0.7) Basophils # (Auto) 0.0 x10^3/uL (0.0-0.2) Segmented Neutrophils % 36 % (35-66) Lymphocytes % 42 % (24-48) Monocytes % 6 % (0-10) Eosinophils % 16 % (0-5) Platelet Estimate Adequate (ADEQUATE) Sodium Level 138 mmol/L (136-145) Potassium Level 3.7 mmol/L (3.5-5.1) Chloride Level 104 mmol/L (98-107) Carbon Dioxide Level 26 mmol/L (21-32) Anion Gap 8 (6-14) Blood Urea Nitrogen 9 mg/dL (7-20) Creatinine 0.8 mg/dL (0.6-1.0) Estimated GFR (Cockcroft-Gault) 84.8 BUN/Creatinine Ratio 11 (6-20) Glucose Level 74 mg/dL (70-99) Calcium Level 7.9 mg/dL (8.5-10.1) Total Bilirubin 0.3 mg/dL (0.2-1.0) Aspartate Amino Transf (AST/SGOT) 21 U/L (15-37) Alanine Aminotransferase (ALT/SGPT) 37 U/L (14-59) Alkaline Phosphatase 54 U/L (46-116) Total Protein 6.9 g/dL (6.4-8.2) Albumin 3.0 g/dL (3.4-5.0) Albumin/Globulin Ratio 0.8 (1.0-1.7) Allergies Allergies Coded Allergies Type Severity Reaction Last Updated Verified No Known Drug Allergies 07/24/18 No Disposition/Orders: D/C to Home Justicifation of Admission Dx: Justifications for Admission: Justification of Admission Dx: No LAURA BOUCHER MD Mar 24, 2020 13:56
--- NOTE | 2020-03-24 13:57 | DISCH ---
DISCHARGE INSTRUCTIONS Condition on Discharge Condition on Discharge: Stable Activity After Discharge Activity Instructions for Disc: Resume previous activity, Activity as tolerated Lifting Instructions after Dis: No heavy lifting, Do not lift >10 pounds Exercise Instruction after Dis: Progress as tolerated Driving Instructions after Dis: Do not drive today, No driving for 2 weeks Weight Bearing Status after Di: No restrictions Diet after Discharge Diet after Discharge: Regular Diet Texture: Regular Liquid Texture: Thin Liquid Checks after Discharge Checks after discharge: Check blood press - daily Contacting the DR. after DC Call your doctor for: Concerns you may have Follow-Up Follow up with: PCP IN 3-7 DAYS Treatment/Equipment after DC Adaptive Equipment Issued: None LAURA BOUCHER MD Mar 24, 2020 13:57
[2020-03-24] MEDS ORDERED: IBUPROFEN 400 MG TABLET. PO PRN (14:00)
--- NOTE | 2020-03-24 14:41 | PDOC2 ---
NEUROLOGY CONSULT Date of Service DOS: DATE: 03/24/20 TIME: 14:35 Reason for Consult Reason for Consult: Headache, abnormal head CT Referring Physician Referring Physician: Dr. Ward Source Source: Chart review, Patient History of Present Illness History of Present Illness The patient is a 30-year-old right-handed female who has had a headache for the past 2 or 3 days. It built up rather slowly. She has headaches 2 or 3 times a month, usually relieved with [id number] medications, but this headache was worse. She did have an abnormal head CT. I discussed the case with Dr. Gregory and recommended CT angiogram and outpatient MRI, but it was decided to admit the patient. Patient has a 2/10 headache now. There are no associated neurological findings. Headaches are occasionally associated with nausea and photo phonophobia, but not always. There is no history of stroke, seizure, or head injury. Past Medical History CENTRAL NERVOUS SYSTEM: Migraine (And tension headache) Renal/: UTI Past Surgical History Past Surgical History: No pertinent history Family History Family History: DM Social History Social History , has 2 kids, no alcohol or tobacco, originally from [facility] Current Medications Current Medications Current Medications Sodium Chloride 1,000 ml @ 1,000 mls/hr 1X ONCE IV Last administered on 03/23/20at 18:29; Start 03/23/20 at 16:00; Stop 03/23/20 at 16:59; Status DC Iohexol (Omnipaque 350 Mg/ml) 75 ml 1X ONCE IV Last administered on 03/23/20at 17:29; Start 03/23/20 at 17:30; Stop 03/23/20 at 17:31; Status DC Info (CONTRAST GIVEN -- Rx MONITORING) 1 each PRN DAILY PRN MC SEE COMMENTS; Start 03/23/20 at 17:30; Stop 03/25/20 at 17:29 Ondansetron HCl (Zofran) 4 mg PRN Q8HRS PRN IV NAUSEA/VOMITING; Start 03/23/20 at 21:00; Stop 03/24/20 at 20:59 Morphine Sulfate (Morphine Sulfate) 4 mg PRN Q2HR PRN IV PAIN; Start 03/23/20 at 21:00; Stop 03/24/20 at 20:59 Ibuprofen (Motrin) 800 mg PRN Q8HRS PRN PO INFLAMMATION/PAIN PREVENTION; Start 03/24/20 at 14:00 Active Scripts Active Ibuprofen 400 Mg Tablet 800 Mg PO PRN Q8HRS PRN Allergies Allergies: Coded Allergies: No Known Drug Allergies (Unverified , 07/24/18) ROS Review of System Negative for fever, chills, weight loss, shortness of breath, chest pain, indigestion, hematochezia, melena, and dysuria. Full 14-point review of systems is negative. Physical Exam Physical Examination General: Well-developed, well-nourished female in no acute distress HEENT: Normocephalic andatraumatic. Temporal arteriespulsatile and no ntender.Fundoscopic exam unremarkable Neck: Supple without bruit, no meningismus Musculoskeletal: Stability:see neurologic. Gait exam:see neurologic. Tone:see neurologic.Strength:see neurologic. Neurological: Mental Status:intact, orientation, memory, attention span/concentration, language, fund of knowledge normal. Cranial Nerves:Pupils equal and reactive to light, extraocular movements areintact, visual campos are full to confrontation. Facial sensation is normal. There is no facial asymmetry. Vestibulo-ocular reflex is intact. Palate elevates and tongue protrudes in midline. All other cranial related problems are negative except as mentioned before.Reflexes:2+ and symmetric with flexor plantar responses. Motor:5/5 strength with normal tone and bulk. Coordination:Finger-nose finger and hnhh-oj-eqeb testing are normal. Rapid alternating movements and fine finger movements are intact. Gait:Normal, including tandem. Sensory:Normal pinprick, vibration, light touch, proprioception. Vitals VITALS Vital Signs Date Time Temp Pulse Resp B/P (MAP) Pulse Ox O2 Delivery O2 Flow Rate FiO2 03/24/20 11:00 97.4 69 18 100/63 (75) 100 Room Air 97.4 Labs Labs Laboratory Tests Test 03/23/20 15:34 03/23/20 15:44 03/23/20 16:00 03/23/20 17:45 Urine Collection Type Void Urine Color Yellow Urine Clarity Clear Urine pH 6.5 (<5.0-8.0) Urine Specific [place] 1.015 (1.000-1.030) Urine Protein Negative mg/dL (NEG-TRACE) Urine Glucose (UA) Negative mg/dL (NEG) Urine Ketones (Stick) Negative mg/dL (NEG) Urine Blood Negative (NEG) Urine Nitrite Negative (NEG) Urine Bilirubin Negative (NEG) Urine Urobilinogen Dipstick 1.0 mg/dL (0.2 mg/dL) Urine Leukocyte Esterase Small (NEG) Urine RBC Rare /HPF (0-2) Urine WBC Occ /HPF (0-4) Urine Squamous Epithelial Cells Mod /LPF Urine Bacteria Few /HPF (0-FEW) Bedside Urine HCG, Qualitative Hcg negative (Negative) Coronavirus (PCR) Detected (Not Detected) Influenza Type A Antigen Negative (NEGATIVE) Influenza Type B Antigen Negative (NEGATIVE) White Blood Count 8.1 x10^3/uL (4.0-11.0) Red Blood Count 4.27 x10^6/uL (3.50-5.40) Hemoglobin 10.7 g/dL (12.0-15.5) Hematocrit 33.8 % (36.0-47.0) Mean Corpuscular Volume 79 fL (79-100) Mean Corpuscular Hemoglobin 25 pg (25-35) Mean Corpuscular Hemoglobin Concent 32 g/dL (31-37) Red Cell Distribution Width 15.8 % (11.5-14.5) Platelet Count 189 x10^3/uL (140-400) Neutrophils (%) (Auto) 36 % (31-73) Lymphocytes (%) (Auto) 34 % (24-48) Monocytes (%) (Auto) 8 % (0-9) Eosinophils (%) (Auto) 21 % (0-3) Basophils (%) (Auto) 0 % (0-3) Neutrophils # (Auto) 2.9 x10^3/uL (1.8-7.7) Lymphocytes # (Auto) 2.7 x10^3/uL (1.0-4.8) Monocytes # (Auto) 0.7 x10^3/uL (0.0-1.1) Eosinophils # (Auto) 1.7 x10^3/uL (0.0-0.7) Basophils # (Auto) 0.0 x10^3/uL (0.0-0.2) Segmented Neutrophils % 36 % (35-66) Lymphocytes % 42 % (24-48) Monocytes % 6 % (0-10) Eosinophils % 16 % (0-5) Platelet Estimate Adequate (ADEQUATE) Sodium Level 138 mmol/L (136-145) Potassium Level 3.7 mmol/L (3.5-5.1) Chloride Level 104 mmol/L (98-107) Carbon Dioxide Level 26 mmol/L (21-32) Anion Gap 8 (6-14) Blood Urea Nitrogen 9 mg/dL (7-20) Creatinine 0.8 mg/dL (0.6-1.0) Estimated GFR (Cockcroft-Gault) 84.8 BUN/Creatinine Ratio 11 (6-20) Glucose Level 74 mg/dL (70-99) Calcium Level 7.9 mg/dL (8.5-10.1) Total Bilirubin 0.3 mg/dL (0.2-1.0) Aspartate Amino Transf (AST/SGOT) 21 U/L (15-37) Alanine Aminotransferase (ALT/SGPT) 37 U/L (14-59) Alkaline Phosphatase 54 U/L (46-116) Total Protein 6.9 g/dL (6.4-8.2) Albumin 3.0 g/dL (3.4-5.0) Albumin/Globulin Ratio 0.8 (1.0-1.7) Laboratory Tests Test 03/23/20 15:34 03/23/20 15:44 03/23/20 16:00 03/23/20 17:45 Urine Collection Type Void Urine Color Yellow Urine Clarity Clear Urine pH 6.5 (<5.0-8.0) Urine Specific [place] 1.015 (1.000-1.030) Urine Protein Negative mg/dL (NEG-TRACE) Urine Glucose (UA) Negative mg/dL (NEG) Urine Ketones (Stick) Negative mg/dL (NEG) Urine Blood Negative (NEG) Urine Nitrite Negative (NEG) Urine Bilirubin Negative (NEG) Urine Urobilinogen Dipstick 1.0 mg/dL (0.2 mg/dL) Urine Leukocyte Esterase Small (NEG) Urine RBC Rare /HPF (0-2) Urine WBC Occ /HPF (0-4) Urine Squamous Epithelial Cells Mod /LPF Urine Bacteria Few /HPF (0-FEW) Bedside Urine HCG, Qualitative Hcg negative (Negative) Coronavirus (PCR) Detected (Not Detected) Influenza Type A Antigen Negative (NEGATIVE) Influenza Type B Antigen Negative (NEGATIVE) White Blood Count 8.1 x10^3/uL (4.0-11.0) Red Blood Count 4.27 x10^6/uL (3.50-5.40) Hemoglobin 10.7 g/dL (12.0-15.5) Hematocrit 33.8 % (36.0-47.0) Mean Corpuscular Volume 79 fL (79-100) Mean Corpuscular Hemoglobin 25 pg (25-35) Mean Corpuscular Hemoglobin Concent 32 g/dL (31-37) Red Cell Distribution Width 15.8 % (11.5-14.5) Platelet Count 189 x10^3/uL (140-400) Neutrophils (%) (Auto) 36 % (31-73) Lymphocytes (%) (Auto) 34 % (24-48) Monocytes (%) (Auto) 8 % (0-9) Eosinophils (%) (Auto) 21 % (0-3) Basophils (%) (Auto) 0 % (0-3) Neutrophils # (Auto) 2.9 x10^3/uL (1.8-7.7) Lymphocytes # (Auto) 2.7 x10^3/uL (1.0-4.8) Monocytes # (Auto) 0.7 x10^3/uL (0.0-1.1) Eosinophils # (Auto) 1.7 x10^3/uL (0.0-0.7) Basophils # (Auto) 0.0 x10^3/uL (0.0-0.2) Segmented Neutrophils % 36 % (35-66) Lymphocytes % 42 % (24-48) Monocytes % 6 % (0-10) Eosinophils % 16 % (0-5) Platelet Estimate Adequate (ADEQUATE) Sodium Level 138 mmol/L (136-145) Potassium Level 3.7 mmol/L (3.5-5.1) Chloride Level 104 mmol/L (98-107) Carbon Dioxide Level 26 mmol/L (21-32) Anion Gap 8 (6-14) Blood Urea Nitrogen 9 mg/dL (7-20) Creatinine 0.8 mg/dL (0.6-1.0) Estimated GFR (Cockcroft-Gault) 84.8 BUN/Creatinine Ratio 11 (6-20) Glucose Level 74 mg/dL (70-99) Calcium Level 7.9 mg/dL (8.5-10.1) Total Bilirubin 0.3 mg/dL (0.2-1.0) Aspartate Amino Transf (AST/SGOT) 21 U/L (15-37) Alanine Aminotransferase (ALT/SGPT) 37 U/L (14-59) Alkaline Phosphatase 54 U/L (46-116) Total Protein 6.9 g/dL (6.4-8.2) Albumin 3.0 g/dL (3.4-5.0) Albumin/Globulin Ratio 0.8 (1.0-1.7) Images Images CT head without contrast: Reason for examination: Headache. Axial images were obtained through the brain. No contrast was administered. Exposure: One or more of the following individualized dose reduction techniques were utilized for this examination: 1. Automated exposure control 2. Adjustment of the mA and/or kV according to patient size 3. Use of iterative reconstruction technique. Ventricular systems are symmetric and not abnormally dilated. No midline shift is seen. There is a small hyperdensity within the right basal ganglia near the genu of the internal capsule measuring 4 mm in size. This has a Hounsfield unit value of 75. This likely represents basal ganglia calcification however a small focus of hemorrhage cannot be excluded. This may be further characterized by MRI. No other focal lesions are seen in the brain. No abnormalities are seen at the orbits. The paranasal sinuses and mastoid air cells are clear. No acute skull abnormality is seen. IMPRESSION: 4 mm hyperdensity in the right basal ganglia near the genu of the internal capsule. This may represent basal ganglia calcification however small hemorrhage cannot be excluded based on Hounsfield unit measurement. Further evaluation with MRI may be helpful. CTA of the intracranial circulation reveals normal appearing distal internal carotid arteries including the distal cervical, petrous, cavernous and supracli noid portions. The anterior cerebral arteries are well visualized and without evidence of stenosis or occlusion. The middle cerebral arteries are well visualized and without evidence of stenosis or occlusion. The posterior cerebral arteries are well visualized and without evidence of stenosis or occlusion. The vertebral basilar system is normal with no evidence of stenosis or occlusion. In the neck, the origins of the great vessels are unremarkable. The common carotid arteries, bilaterally are normal with no evidence of significant stenosis or occlusion. The internal carotid arteries are normal bilaterally with no evidence of stenosis. The vertebral arteries in the neck are well visualized bilaterally and unremarkable. 2.1 cm right thyroid nodule is seen containing coarse central calcifications resulting in mild deformity and mass effect on the trachea.. Further evaluation with thyroid ultrasound is recommended. Mild deformity of the right lamina papyracea likely old orbital blowout fracture. IMPRESSION: 1. No evidence for high-grade stenosis or occlusion of the carotid or vertebral arteries or intracranial cerebral arteries. 2. Right thyroid nodule, for which ultrasound evaluation is recommended. MRI BRAIN WO History:Reason: HEADACHE EVAL HYPERDENSITY Technique: Multiplanar, multi sequential MR imaging was performed of the brain without contrast. Comparison: CT March 23, 2020 Findings: No acute infarct. No mass effect. No hydrocephalus. Gradient hypointensities within the bilateral basal ganglia related to calcifications, right greater than left. This corresponds with previously seen CT hyperdensity. No acute intracranial hemorrhage. Imaged orbits are unremarkable. Imaged paranasal sinuses and mastoid air cells are clear. Chronic right mediolateral wall defect. Impression: 1. No acute intracranial abnormality. 2. Bilateral basal ganglia calcifications, right greater than left, corresponding with CT hyperdensity. Assessment/Plan Assessment/Plan Impression: Tension and migraine headaches Benign basal ganglia calcifications of no clinical significance. No evidence of any aneurysm Recommendations: Continue [id number] pain medications for headache as needed Follow-up with me if headaches increase in frequency, otherwise follow-up with me as needed. Okay for discharge Thank you for letting me help with the patient's care. ANUSHA REYNOLDS MD Mar 24, 2020 14:41
--- NOTE | 2020-03-24 15:15 | NUR ---
Pt left unit by wheelchair at approx 1515 via private vehicle with . Pt's IV removed, VSS. Discharge paperwork and follow-up discussed, COVID instructions included. Belongings returned to pt.
--- NOTE | 2020-03-24 17:07 | NUR ---
SW following for discharge planning. Spoke with RN and reviewed chart. Pt discharged home, self-care. No SW needs on discharge.
== END 2020-03-24 15:17 | disposition home or self-care (01) ==
LOC: ER 15:20 → 4 NORTH 20:53 → 6 SOUTH 03-24 07:26
PROVIDERS: ADMIT Internal Medicine; ATTEND Internal Medicine
DX: U07.1 COVID-19 (principal); R51.9 Headache, unspecified; E66.01 Morbid (severe) obesity due to excess calories; I10 Essential (primary) hypertension; E04.1 Nontoxic single thyroid nodule; E78.5 Hyperlipidemia, unspecified; N39.0 Urinary tract infection, site not specified; Z87.891 Personal history of nicotine dependence; Z68.35 Body mass index [BMI] 35.0-35.9, adult
CPT/HCPCS: 36415; 70450; 70496; 70498; 70551; 80053; 81001; 81025; 85007; 85025; 87086; 87804; 96360; 96361; 99284; G0378; J7030; Q9967; U0003; G0379

== ENCOUNTER 2021-06-09 16:57 | Inpatient (IN) | payer MEDICAID ==
[~2021-06-09] VITALS: Ht 165.1 cm; Wt 134.0 kg
[~2021-06-09 16:57] MED LIST changes: +OXYC1TAB15 PO
[2021-06-09] MEDS ORDERED: IV RINGERS,LACTATED 1000ML 1,000 ML IV SCH ×2 (17:30→19:00)
[2021-06-09 18:06] LABS: BASO % 0 % (0-3); EOS # 0.2 x10^3/uL (0.0-0.7); EOS % 4 % (0-3); HEMOGLOBIN 10.3 g/dL (12.0-15.5); LYMPH # 1.2 x10^3/uL (1.0-4.8); LYMPH % 23 % (24-48); MEAN CORPUSCULAR HEMOGLOBIN 23 pg (25-35); MEAN CORPUSCULAR HGB CONC 31 g/dL (31-37); MEAN CORPUSCULAR VOLUME 74 fL (79-100); MONO # 0.3 x10^3/uL (0.0-1.1); MONO % 5 % (0-9); NEUT # 3.6 x10^3/uL (1.8-7.7); NEUT % 68 % (31-73); PLATELET COUNT 246 x10^3/uL (140-400); RED BLOOD COUNT 4.44 x10^6/uL (3.50-5.40); RED CELL DISTRIBUTION WIDTH 16.5 % (11.5-14.5); WHITE BLOOD COUNT 5.3 x10^3/uL (4.0-11.0)
[2021-06-09 18:15] LABS: CALCIUM 8.3 mg/dL (8.5-10.1); CREATININE 0.7 mg/dL (0.6-1.0); GFR 98.3; POTASSIUM 3.4 mmol/L (3.5-5.1)
[2021-06-09 18:21] LABS: ALBUMIN 3.1 g/dL (3.4-5.0); ALBUMIN/GLOBULIN RATIO 0.7 (1.0-1.7); TOTAL BILIRUBIN 0.6 mg/dL (0.2-1.0); TOTAL PROTEIN 7.4 g/dL (6.4-8.2)
[2021-06-09] MEDS ORDERED: OXYTOCIN 30 UNIT/500 ML PREMIX 500 ML IV ONE (18:55)
[2021-06-09] MEDS ORDERED: MORPHINE SULFATE 4 MG/ML INJ. IM ONE (19:00)
[2021-06-09] MEDS ORDERED: 0.9 % SODIUM CHLORIDE 10 ML DISP.SYRIN. IV PRN (19:00)
[2021-06-09] MEDS ORDERED: LIDOCAINE 1% PF 30 ML VIAL. INJ PRN (19:00)
[2021-06-09] MEDS ORDERED: IBUPROFEN 400 MG TABLET. PO PRN (19:00)
[2021-06-09] MEDS ORDERED: OXYTOCIN 30 UNIT/500 ML PREMIX 500 ML IV PRN ×3 (19:00→19:30)
[2021-06-09] MEDS ORDERED: TERBUTALINE 1 MG/ML VIAL. SQ PRN (19:00)
--- NOTE | 2021-06-09 19:06 | RAD ---
Exam: Ultrasound OB greater than 14 weeks Indication: Bleeding, no care Technique: Real-time grayscale and color Doppler images of the pelvis were obtained by the department computer assembler. Comparisons: None FINDINGS: Within the uterus there is a intrauterine gestation. No heart tones are detected. measurements as follows: PPD: 5.0 cm corresponding to 21 weeks 2 days Head circumference: 19.1 cm corresponding to 21 weeks 2 days Abdominal circumference: 21.1 cm corresponding to 25 weeks 4 days Femur length: 2.2 cm corresponding to 23 weeks 3 days Gestational age by ultrasound: 22 weeks 6 days Gestation age by LMP: 19 weeks 3 days Cervix is open. IMPRESSION: 1. Findings concerning for demise with no heart tones identified within the fetus which is measuring 22 weeks 6 days. 2. Cervix is open could relate to in progress. Primary team is aware of findings Electronically signed by: Vance Ponce MD (06/09/2021 7:03 PM) JAMESON
[2021-06-09] MEDS ORDERED: DOCUSATE SODIUM 100 MG CAPSULE. PO PRN (19:30)
[2021-06-09] MEDS ORDERED: TDaP (BOOSTRIX) per PROTOCOL. MC PRN (19:30)
[2021-06-09] MEDS ORDERED: HYDROCORTISONE 1% TOPICAL OINTMENT 30GM TUBE. TP PRN (19:30)
[2021-06-09] MEDS ORDERED: SIMETHICONE 80 MG TAB.CHEW PO PRN (19:30)
[2021-06-09] MEDS ORDERED: diphenhydrAMINE HCL 25 MG CAPSULE PO PRN (19:30)
[2021-06-09] MEDS ORDERED: PHENYLEPH/MINERAL OIL/PETROLAT RECTAL OINTMENT TUBE. RC PRN (19:30)
[2021-06-09] MEDS ORDERED: MMR per PROTOCOL. MC PRN (19:30)
[2021-06-09] MEDS ORDERED: oxyCODONE/APAP 5/325 1 TAB TABLET PO PRN (19:30)
[2021-06-09] MEDS ORDERED: MAGNESIUM HYDROXIDE 2,400 MG/30 ML ORAL.SUSP. PO PRN (19:30)
[2021-06-09] MEDS ORDERED: ACETAMINOPHEN 325 MG TABLET. PO PRN (19:30)
[2021-06-09] MEDS ORDERED: POTASSIUM CHLORIDE 20 MEQ TABLET.ER. PO ONE (20:00)
--- NOTE | 2021-06-09 20:29 | PDOC1 ---
WA[facility] D[facility]ER H&P Date of Admission: Date of Admission: Jun 09, 2021 at 16:57 History of Present Illness: 31 y/o female presents with no care for bloody fluid discharge and back pain. Patient states she has never felt movement with this . Today she noticed a gush of bloody fluid at 1500. Patient states her last menstrual period was December,. She admits to most recent delivery was section on 10/02/2020. She denies any other complaints. She denies shortness of breath, chest pain, fever/chills, nausea/vomiting. Past Medical History: Cardiovascular: No pertinent hx Pulmonary: No pertinent hx GI: No pertinent hx Heme/Onc: No pertinent hx Hepatobiliary: No pertinent hx Psych: No pertinent hx Rheumatologic: No pertinent hx Infectious disease: No pertinent hx ENT: No pertinent hx Renal/: No pertinent hx, UTI Endocrine: No pertinent hx Dermatology: No pertinent hx Grav: 5 Para: 4 Past Surgical History: Social History: Smoke: No ALCOHOL: none Drugs: None Medications: Meds: Current Medications Medications (Trade) Dose Ordered Sig/Ariadna Route PRN Reason Start Time Stop Time Status Last Admin Dose Admin Ringer's Solution 1,000 ml @ 125 mls/hr Q8H IV 06/09/21 17:30 06/09/21 19:05 Morphine Sulfate (Morphine Sulfate) 4 mg 1X ONCE IM 06/09/21 19:00 06/09/21 19:01 DC 06/09/21 19:04 Oxytocin 500 ml @ 0 mls/hr CONT PRN IV SEE I/O RECORD 06/09/21 19:00 06/09/21 19:06 Allergies: Coded Allergies: No Known Drug Allergies (Unverified , 07/24/18) Physical Exam: Vital Signs: Vital Signs Date Time Temp Pulse Resp B/P (MAP) Pulse Ox O2 Delivery O2 Flow Rate FiO2 06/09/21 19:04 18 Room Air PE: GENERAL: No apparent distress. Alert and oriented. HEENT: Head normocephalic, atraumatic. NECK: Supple LUNGS: Clear to auscultation. HEART: RRR, S1, S2 present, pulses intact ABDOMEN: Soft, positive bowel sounds. EXTREMITIES: No cyanosis or edema. NEUROLOGIC: Normal speech, normal tone PSYCHIATRIC: Normal affect, normal mood. SKIN: No ulceration. Cervix: BBOW in the vagina per nurse exam @ 1853 Labs: Laboratory Tests Test 06/09/21 17:40 White Blood Count 5.3 x10^3/uL (4.0-11.0) Red Blood Count 4.44 x10^6/uL (3.50-5.40) Hemoglobin 10.3 g/dL (12.0-15.5) L Hematocrit 33.0 % (36.0-47.0) L Mean Corpuscular Volume 74 fL (79-100) L Mean Corpuscular Hemoglobin 23 pg (25-35) L Mean Corpuscular Hemoglobin Concent 31 g/dL (31-37) Red Cell Distribution Width 16.5 % (11.5-14.5) H Platelet Count 246 x10^3/uL (140-400) Neutrophils (%) (Auto) 68 % (31-73) Lymphocytes (%) (Auto) 23 % (24-48) L Monocytes (%) (Auto) 5 % (0-9) Eosinophils (%) (Auto) 4 % (0-3) H Basophils (%) (Auto) 0 % (0-3) Neutrophils # (Auto) 3.6 x10^3/uL (1.8-7.7) Lymphocytes # (Auto) 1.2 x10^3/uL (1.0-4.8) Monocytes # (Auto) 0.3 x10^3/uL (0.0-1.1) Eosinophils # (Auto) 0.2 x10^3/uL (0.0-0.7) Basophils # (Auto) 0.0 x10^3/uL (0.0-0.2) Sodium Level 139 mmol/L (136-145) Potassium Level 3.4 mmol/L (3.5-5.1) L Chloride Level 103 mmol/L (98-107) Carbon Dioxide Level 23 mmol/L (21-32) Anion Gap 13 (6-14) Blood Urea Nitrogen 7 mg/dL (7-20) Creatinine 0.7 mg/dL (0.6-1.0) Estimated GFR (Cockcroft-Gault) 98.3 BUN/Creatinine Ratio 10 (6-20) Glucose Level 82 mg/dL (70-99) Calcium Level 8.3 mg/dL (8.5-10.1) L Total Bilirubin 0.6 mg/dL (0.2-1.0) Aspartate Amino Transferase (AST) 18 U/L (15-37) Alanine Aminotransferase (ALT) 14 U/L (14-59) Alkaline Phosphatase 60 U/L (46-116) Total Protein 7.4 g/dL (6.4-8.2) Albumin 3.1 g/dL (3.4-5.0) L Albumin/Globulin Ratio 0.7 (1.0-1.7) L Laboratory Tests 06/09/21 17:40 Laboratory Tests 06/09/21 17:40 Laboratory Tests 06/09/21 17:40 Assessment & Plan: 31 y/o 1. Stillborn at 22w6d: Ultrasound confirmed the demise and gestational age by rail technician @ 1825. 2. History of section (10/02/20) 3. indicated with imminent delivery and second trimester gestation. Discussed case with MFM at [facility] who recommends vaginal delivery with low risk for uterine rupture <1%. 4. Bloody fluid discharge: Amnisure specimen was sent and unable to be processed because of blood. No evidence of placental abruption clinically. 5. No care: Gestational age was based on dating ultrasound today. NIRAV BARCENAS MD Jun 09, 2021 20:29
--- NOTE | 2021-06-09 20:42 | PDOC4 ---
VAGINAL DELIVERY DATE DATE: 06/09/21 TIME 1855 : 5 Para: 4 EGA: 22.6 VAGINAL DELIVERY: (vertex) VACCUM ASSISTED: No PLACENTA: Spontaneous (@1904) 0 SEX: Female WEIGHT Weight [555 grams ] Nuchal Cord: No Amniotic Fluid: Other (dark brown) PAIN: Natural (Morphine IVP after delivery) EPISIOTOMY: No EXTENSION: No EBL 150 ml CONDITION stillborn ADDITIONAL NOTES placenta inspected and intact with no abnormality Signs of Intrauterine Infectio: None Shoulder Dystocia: No DIAGNOSIS stillborn at 22 weeks 6 days; Problems: (1) Stillborn, normal (2) Second trimester (3) , delivered, current hospitalization (4) Vaginal delivery NIRAV BARCENAS MD Jun 09, 2021 20:42
[2021-06-09 21:40] VITALS: BP 110/66
[2021-06-09] MEDS ORDERED: IV RINGERS,LACTATED 1000ML 1,000 ML IV PRN (22:30)
[2021-06-09 22:48] VITALS: BP 109/70
--- NOTE | 2021-06-10 00:30 | NUR ---
Pt requests to not be disturbed if possible, would like to get some rest and have some time to herself.
[2021-06-10 04:07] VITALS: BP 121/68
[2021-06-10 07:50] VITALS: BP 126/68
[2021-06-10 07:58] LABS: BASO % 0 % (0-3); EOS # 0.2 x10^3/uL (0.0-0.7); EOS % 5 % (0-3); HEMATOCRIT 29.4 % (36.0-47.0); HEMOGLOBIN 9.2 g/dL (12.0-15.5); LYMPH # 1.7 x10^3/uL (1.0-4.8); LYMPH % 33 % (24-48); MEAN CORPUSCULAR HEMOGLOBIN 23 pg (25-35); MEAN CORPUSCULAR HGB CONC 31 g/dL (31-37); MEAN CORPUSCULAR VOLUME 74 fL (79-100); MONO # 0.3 x10^3/uL (0.0-1.1); MONO % 6 % (0-9); NEUT # 2.8 x10^3/uL (1.8-7.7); NEUT % 56 % (31-73); PLATELET COUNT 220 x10^3/uL (140-400); RED BLOOD COUNT 3.95 x10^6/uL (3.50-5.40); RED CELL DISTRIBUTION WIDTH 16.9 % (11.5-14.5); WHITE BLOOD COUNT 5.1 x10^3/uL (4.0-11.0)
[2021-06-10] MEDS ORDERED: FERROUS SULFATE 325 MG TABLET. PO SCH (09:00)
[2021-06-10] MEDS ORDERED: MULTIVITAMIN with MINERAL TABLET. PO SCH (09:00)
[2021-06-10] MEDS ORDERED: medroxyPROGESTERone IM 150 MG/ML VIAL. IM ONE (10:15)
[2021-06-10] MEDS ORDERED: IBUP-1007 PO (10:26)
--- NOTE | 2021-06-10 10:34 | DISCH ---
DISCHARGE INSTRUCTIONS Condition on Discharge Condition on Discharge: Stable Activity After Discharge Activity Instructions for Disc: Activity as tolerated, Other, see below (pelvic rest for 6 weeks) Lifting Instructions after Dis: No heavy lifting (2 weeks) Exercise Instruction after Dis: Progress as tolerated Driving Instructions after Dis: Do not drive today Weight Bearing Status after Di: As tolerated Sexual Activity Restrictions: pelvic rest for 6 weeks Diet after Discharge Diet after Discharge: Regular Diet Texture: Regular Wound Incision Care Wound/Incision Care: No wound care needed Checks after Discharge DC Comment: Follow up with [facility] next week Contacting the DRDion after DC Call your doctor for: Concerns you may have Treatment/Equipment after DC Adaptive Equipment Issued: None NIRAV BARCENAS MD Jun 10, 2021 10:34
[2021-06-10] MEDS ORDERED: FERR325T72 PO (10:38)
--- NOTE | 2021-06-10 10:45 | PDOC ---
SAT INSTRUCTOR PROGRESS NOTE Date of Service: DATE: 06/10/21 TIME: 10:40 Subjective: 31 y/o female status post vaginal delivery of 22 week stillborn is doing well . Lochia normal. Pain is well controlled by ibuprofen. Patient admits to mild headache. She denies SOB, CP, visual disturbances. Objective: Vital Signs: Vital Signs Date Time Temp Pulse Resp B/P (MAP) Pulse Ox O2 Delivery O2 Flow Rate FiO2 06/09/21 19:04 18 Room Air 06/09/21 21:40 98.0 94 110/66 (81) 98.0 06/09/21 22:48 100 Vital Signs Date Time Temp Pulse Resp B/P (MAP) Pulse Ox O2 Delivery O2 Flow Rate FiO2 06/10/21 07:50 98.3 79 18 126/68 (87) 99 Room Air 98.3 Labs: Laboratory Tests Test 06/09/21 17:40 06/10/21 07:40 White Blood Count 5.3 x10^3/uL (4.0-11.0) 5.1 x10^3/uL (4.0-11.0) Red Blood Count 4.44 x10^6/uL (3.50-5.40) 3.95 x10^6/uL (3.50-5.40) Hemoglobin 10.3 g/dL (12.0-15.5) L 9.2 g/dL (12.0-15.5) L Hematocrit 33.0 % (36.0-47.0) L 29.4 % (36.0-47.0) L Mean Corpuscular Volume 74 fL (79-100) L 74 fL (79-100) L Mean Corpuscular Hemoglobin 23 pg (25-35) L 23 pg (25-35) L Mean Corpuscular Hemoglobin Concent 31 g/dL (31-37) 31 g/dL (31-37) Red Cell Distribution Width 16.5 % (11.5-14.5) H 16.9 % (11.5-14.5) H Platelet Count 246 x10^3/uL (140-400) 220 x10^3/uL (140-400) Neutrophils (%) (Auto) 68 % (31-73) 56 % (31-73) Lymphocytes (%) (Auto) 23 % (24-48) L 33 % (24-48) Monocytes (%) (Auto) 5 % (0-9) 6 % (0-9) Eosinophils (%) (Auto) 4 % (0-3) H 5 % (0-3) H Basophils (%) (Auto) 0 % (0-3) 0 % (0-3) Neutrophils # (Auto) 3.6 x10^3/uL (1.8-7.7) 2.8 x10^3/uL (1.8-7.7) Lymphocytes # (Auto) 1.2 x10^3/uL (1.0-4.8) 1.7 x10^3/uL (1.0-4.8) Monocytes # (Auto) 0.3 x10^3/uL (0.0-1.1) 0.3 x10^3/uL (0.0-1.1) Eosinophils # (Auto) 0.2 x10^3/uL (0.0-0.7) 0.2 x10^3/uL (0.0-0.7) Basophils # (Auto) 0.0 x10^3/uL (0.0-0.2) 0.0 x10^3/uL (0.0-0.2) Sodium Level 139 mmol/L (136-145) Potassium Level 3.4 mmol/L (3.5-5.1) L Chloride Level 103 mmol/L (98-107) Carbon Dioxide Level 23 mmol/L (21-32) Anion Gap 13 (6-14) Blood Urea Nitrogen 7 mg/dL (7-20) Creatinine 0.7 mg/dL (0.6-1.0) Estimated GFR (Cockcroft-Gault) 98.3 BUN/Creatinine Ratio 10 (6-20) Glucose Level 82 mg/dL (70-99) Calcium Level 8.3 mg/dL (8.5-10.1) L Total Bilirubin 0.6 mg/dL (0.2-1.0) Aspartate Amino Transferase (AST) 18 U/L (15-37) Alanine Aminotransferase (ALT) 14 U/L (14-59) Alkaline Phosphatase 60 U/L (46-116) Total Protein 7.4 g/dL (6.4-8.2) Albumin 3.1 g/dL (3.4-5.0) L Albumin/Globulin Ratio 0.7 (1.0-1.7) L Laboratory Tests 06/09/21 17:40 06/10/21 07:40 Laboratory Tests 06/09/21 17:40 Laboratory Tests 06/09/21 17:40 06/10/21 07:40 Physical Exam: GENERAL: No apparent distress. Alert and oriented. HEENT: Head normocephalic, atraumatic. NECK: Supple LUNGS: Clear to auscultation. HEART: RRR, S1, S2 present, pulses intact ABDOMEN: Soft, positive bowel sounds. EXTREMITIES: No cyanosis or edema. NEUROLOGIC: Normal speech, normal tone PSYCHIATRIC: Normal affect, normal mood. SKIN: No ulceration. uterus firm below umbilicus Assessment & Plan: 31 y/o 1. PPD #1 status post vaginal delivery. 2. Stillborn at 22 weeks. 3. Discharge home. 4. Discussed outpatient management at [facility]. 5. Work excuse given until next week. Patient wants to return to work on 06/14/21. NIRAV BARCENAS MD Jun 10, 2021 10:45
--- NOTE | 2021-06-10 11:00 | PDOC3 ---
Discharge Summary Visit Information Date of Admission: Jun 09, 2021 Date of Discharge: Jun 10, 2021 Admitting Diagnosis: vaginal bleeding in Admitting Diagnosis Comment: stillborn Final Diagnosis Problems Medical Problems: (1) Status: Acute Brief Hospital Course Allergies Allergies Coded Allergies Type Severity Reaction Last Updated Verified No Known Drug Allergies 07/24/18 No Vital Signs Vital Signs Date Time Temp Pulse Resp B/P (MAP) Pulse Ox O2 Delivery O2 Flow Rate FiO2 06/10/21 07:50 98.3 79 18 126/68 (87) 99 Room Air 98.3 Lab Results Laboratory Tests Test 06/09/21 17:40 06/10/21 07:40 White Blood Count 5.3 x10^3/uL (4.0-11.0) 5.1 x10^3/uL (4.0-11.0) Red Blood Count 4.44 x10^6/uL (3.50-5.40) 3.95 x10^6/uL (3.50-5.40) Hemoglobin 10.3 g/dL (12.0-15.5) 9.2 g/dL (12.0-15.5) Hematocrit 33.0 % (36.0-47.0) 29.4 % (36.0-47.0) Mean Corpuscular Volume 74 fL (79-100) 74 fL (79-100) Mean Corpuscular Hemoglobin 23 pg (25-35) 23 pg (25-35) Mean Corpuscular Hemoglobin Concent 31 g/dL (31-37) 31 g/dL (31-37) Red Cell Distribution Width 16.5 % (11.5-14.5) 16.9 % (11.5-14.5) Platelet Count 246 x10^3/uL (140-400) 220 x10^3/uL (140-400) Neutrophils (%) (Auto) 68 % (31-73) 56 % (31-73) Lymphocytes (%) (Auto) 23 % (24-48) 33 % (24-48) Monocytes (%) (Auto) 5 % (0-9) 6 % (0-9) Eosinophils (%) (Auto) 4 % (0-3) 5 % (0-3) Basophils (%) (Auto) 0 % (0-3) 0 % (0-3) Neutrophils # (Auto) 3.6 x10^3/uL (1.8-7.7) 2.8 x10^3/uL (1.8-7.7) Lymphocytes # (Auto) 1.2 x10^3/uL (1.0-4.8) 1.7 x10^3/uL (1.0-4.8) Monocytes # (Auto) 0.3 x10^3/uL (0.0-1.1) 0.3 x10^3/uL (0.0-1.1) Eosinophils # (Auto) 0.2 x10^3/uL (0.0-0.7) 0.2 x10^3/uL (0.0-0.7) Basophils # (Auto) 0.0 x10^3/uL (0.0-0.2) 0.0 x10^3/uL (0.0-0.2) Sodium Level 139 mmol/L (136-145) Potassium Level 3.4 mmol/L (3.5-5.1) Chloride Level 103 mmol/L (98-107) Carbon Dioxide Level 23 mmol/L (21-32) Anion Gap 13 (6-14) Blood Urea Nitrogen 7 mg/dL (7-20) Creatinine 0.7 mg/dL (0.6-1.0) Estimated GFR (Cockcroft-Gault) 98.3 BUN/Creatinine Ratio 10 (6-20) Glucose Level 82 mg/dL (70-99) Calcium Level 8.3 mg/dL (8.5-10.1) Total Bilirubin 0.6 mg/dL (0.2-1.0) Aspartate Amino Transf (AST/SGOT) 18 U/L (15-37) Alanine Aminotransferase (ALT/SGPT) 14 U/L (14-59) Alkaline Phosphatase 60 U/L (46-116) Total Protein 7.4 g/dL (6.4-8.2) Albumin 3.1 g/dL (3.4-5.0) Albumin/Globulin Ratio 0.7 (1.0-1.7) Laboratory Tests Test 06/09/21 17:40 06/10/21 07:40 White Blood Count 5.3 x10^3/uL (4.0-11.0) 5.1 x10^3/uL (4.0-11.0) Red Blood Count 4.44 x10^6/uL (3.50-5.40) 3.95 x10^6/uL (3.50-5.40) Hemoglobin 10.3 g/dL (12.0-15.5) 9.2 g/dL (12.0-15.5) Hematocrit 33.0 % (36.0-47.0) 29.4 % (36.0-47.0) Mean Corpuscular Volume 74 fL (79-100) 74 fL (79-100) Mean Corpuscular Hemoglobin 23 pg (25-35) 23 pg (25-35) Mean Corpuscular Hemoglobin Concent 31 g/dL (31-37) 31 g/dL (31-37) Red Cell Distribution Width 16.5 % (11.5-14.5) 16.9 % (11.5-14.5) Platelet Count 246 x10^3/uL (140-400) 220 x10^3/uL (140-400) Neutrophils (%) (Auto) 68 % (31-73) 56 % (31-73) Lymphocytes (%) (Auto) 23 % (24-48) 33 % (24-48) Monocytes (%) (Auto) 5 % (0-9) 6 % (0-9) Eosinophils (%) (Auto) 4 % (0-3) 5 % (0-3) Basophils (%) (Auto) 0 % (0-3) 0 % (0-3) Neutrophils # (Auto) 3.6 x10^3/uL (1.8-7.7) 2.8 x10^3/uL (1.8-7.7) Lymphocytes # (Auto) 1.2 x10^3/uL (1.0-4.8) 1.7 x10^3/uL (1.0-4.8) Monocytes # (Auto) 0.3 x10^3/uL (0.0-1.1) 0.3 x10^3/uL (0.0-1.1) Eosinophils # (Auto) 0.2 x10^3/uL (0.0-0.7) 0.2 x10^3/uL (0.0-0.7) Basophils # (Auto) 0.0 x10^3/uL (0.0-0.2) 0.0 x10^3/uL (0.0-0.2) Sodium Level 139 mmol/L (136-145) Potassium Level 3.4 mmol/L (3.5-5.1) Chloride Level 103 mmol/L (98-107) Carbon Dioxide Level 23 mmol/L (21-32) Anion Gap 13 (6-14) Blood Urea Nitrogen 7 mg/dL (7-20) Creatinine 0.7 mg/dL (0.6-1.0) Estimated GFR (Cockcroft-Gault) 98.3 BUN/Creatinine Ratio 10 (6-20) Glucose Level 82 mg/dL (70-99) Calcium Level 8.3 mg/dL (8.5-10.1) Total Bilirubin 0.6 mg/dL (0.2-1.0) Aspartate Amino Transf (AST/SGOT) 18 U/L (15-37) Alanine Aminotransferase (ALT/SGPT) 14 U/L (14-59) Alkaline Phosphatase 60 U/L (46-116) Total Protein 7.4 g/dL (6.4-8.2) Albumin 3.1 g/dL (3.4-5.0) Albumin/Globulin Ratio 0.7 (1.0-1.7) Brief Hospital Course Ms. Box is a 31 old female who presented with bloody watery discharge in with no care and unknown gestational age. She was determined by ultrasound to have confirmed demise at 22 weeks 6 days. She delivered a stillborn by vaginal delivery as a . Assessment Assessment Lochia normal. Labs normal with minimal anemia. Discharge Information Condition at Discharge: Stable Follow Up: Weeks (1week) Disposition/Orders: D/C to Home Scheduled PRN Ibuprofen (Ibuprofen) 400 Mg Tablet, 800 MG PO PRN Q8HRS PRN for INFLAMMATION/PAIN PREVENTION, #30 Ref 1 Prescribed by: BETTY PEDROZA on 12/02/19 0634 Discontinued Medications Oxycodone/Apap 5-325 (Percocet 5-325 Mg Tablet ) 1 Each Tablet, 1 TAB PO PRN Q6HRS PRN for PAIN, #15 Ref 0 Prescribed by: CAROL VALERO MD on 10/04/20 1054 Last Action: Discontinued on 06/10/21 1015 by NIRAV BARCENAS MD Patient Instructions Patient Instructions Pelvic rest for 6 weeks. Justicifation of Admission Dx: Justifications for Admission: Justification of Admission Dx: Comment: (stillborn) NIRAV BARCENAS MD Jun 10, 2021 11:00
[2021-06-10 12:00] VITALS: BP 117/75
--- NOTE | 2021-06-10 12:05 | NUR ---
Dismissed to in car. Went out by w/c. Rx sent to [facility] by Home care instructions given with copy. Reminded to keep tues appt with [facility] that was already made before this loss. Pt will stop at home on way home to sign papers. Pt given bereavement box with things in it. Pt held baby for 30 min. Pt given depo shot with instructions for next shot in 3 months and needs to establish herself at [facility] [place], so she can get next shot. Blood type ab+ . Went over there are support groups available and [facility] is a good source for depression.
--- NOTE | 2021-06-10 12:50 | NUR ---
[facility] home here and picked up baby.
== END 2021-06-10 12:05 | disposition home or self-care (01) | DRG 807 ==
LOC: OBSVTOIN 16:57 → 3 SO LND 16:57
PROVIDERS: ADMIT Obstetrics & Gynecology; ATTEND Obstetrics & Gynecology
PROC: 10E0XZZ Delivery of Products of Conception, External Approach (ICD-10-PCS; principal; 2021-06-09)
DX: O36.4XX0 Maternal care for intrauterine death, not applicable or unspecified (principal); Z37.1 Single stillbirth; O34.219 Maternal care for unspecified type scar from previous cesarean delivery; O46.92 Antepartum hemorrhage, unspecified, second trimester; Z3A.22 22 weeks gestation of pregnancy
CPT/HCPCS: 36415; 76805; 80053; 85025; 86850; 86900; 86901; J1050; J2270; J2590; J7120; G0378